=== PATIENT | female | born 1995 | race Caucasian/White ===

== ENCOUNTER 2017-04-15 01:22 | Inpatient (IN) ==
--- NOTE | 2017-04-14 20:43 | OB/GYN History & Physical ---
Date of Encounter: 04/14/17 Time of Encounter: 20:34 History of Present Illness HPI: Ms. Mcgrath is a 21 year old female presents to [facility] with complaints of vaginal bleeding and leaking of fluid. Pt evaluated earlier this evening at [facility]. Pt states she went to [facility] for assessment of abdominal and menstrual type cramping, back pain and leaking of fluid. Past Med Surg Social Fam HX - Past Medical History Medical history: seizures Psychiatric history: ADHD - Social History Smoking Status: Never smoker Smokeless Tobacco Status: No Alcohol use: none Drug use: none Medications and Allergies Divalproex Sodium [Divalproex Sodium ER] 500 mg PO DAILY 12/30/14 [History] Folic Acid 1 mg PO DAILY 12/30/14 [History] Methylphenidate HCl [Methylphenidate ER] 54 mg PO DAILY 12/30/14 [History] Omeprazole [Prilosec] 20 mg PO DAILY 12/30/14 [History] Quetiapine Fumarate [SEROquel] 100 mg PO HS 12/30/14 [History] Quetiapine Fumarate [Seroquel] 50 mg PO DAILY 12/30/14 [History] lamoTRIgine [Lamotrigine] 25 mg PO DAILY 12/30/14 [History] Cephalexin [Keflex] 500 mg PO BID 7 Days capsule 01/17/17 [Rx] Acetaminophen [Tylenol] 500 mg PO Q6HR PRN #20 tablet 03/04/17 [Rx] 3 Allergy/AdvReac Type Severity Reaction Status Date / Time Amoxicillin Allergy Nausea Verified 01/17/17 12:40 Results All other labs normal.
--- NOTE | 2017-04-14 21:03 | OB/GYN History & Physical ---
Date of Encounter: 04/14/17 Time of Encounter: 20:50 Assessment and Plan (1) 35 weeks gestation of Current visit: Yes Status: Acute (2) labor in third trimester Current visit: Yes Status: Acute Pt 4cm on arrival to triage. Obtain UA C&S 1L LR bolus then 125/hr. Observe for cervical change Dr. Silva aware of evaluation Nubain for contraction pain Qualifiers: labor delivery status: without delivery Qualified Code(s): O60.03 - labor without delivery, third trimester History of Present Illness HPI: Ms. Mcgrath is a 21 year old female 35+0 by patient given EDC of May 19. Presents to triage with complaints of abdominal pain, vaginal bleeding and leaking of fluid. Pt evaluated earlier this evening at [facility]. Pt states she went to [facility] for assessment of abdominal and menstrual type cramping, back pain and leaking of fluid.While at [facility], pt made cervical change from 1 -4 cm. [facility] attempted to transfer patient to [facility] and patient refused. Pt now presents to [facility] for treatment and evaluation. Reports good movement, states is being followed high risk MD for a possible history of seizures, Pt states was told the baby is growing well. 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 Past Med Surg Social Fam HX - Past Medical History Medical history: seizures Psychiatric history: ADHD - Past Surgical History Surgical History: other - Social History Smoking Status: Never smoker Smokeless Tobacco Status: No Alcohol use: none Drug use: none - Family History Mother History Unknown: Yes Obstetrical History - Pregnancies : 2 Para: 0 Term: 0 : 0 Ab's: 1 Livin Medications and Allergies Divalproex Sodium [Divalproex Sodium ER] 500 mg PO DAILY 12/30/14 [History] lamoTRIgine [Lamotrigine] 25 mg PO DAILY 12/30/14 [History] Acetaminophen [Tylenol] 500 mg PO Q6HR PRN #20 tablet 03/04/17 [Rx] 3 Allergy/AdvReac Type Severity Reaction Status Date / Time Amoxicillin Allergy Nausea Verified 04/14/17 20:51 Exam - Constitutional Constitutional: well developed, well nourished, no acute distress, average body habitus - Neck Neck exam: full ROM - Lungs Respiratory exam: CTAB - Cardiovascular Cardiovascular exam: RRR - Abdomen Abdomen: Present: bowel sounds normal, gravid, non tender - Extremities Extremities exam: normal capillary refill, normal inspection Deep Tendon Reflex Grade: 2+ Normal - Vagina Vagina: Present: normal moisture - Cervix Dilation: 4 Effacement: 75 Station: -2 - Uterus Uterus exam: Present: normal size, normal contour Results Result Diagrams: 04/14/17 21:05 All other labs normal. - VTE Reasons for not Prescribing Prophylaxis: Treatment not Indicated - Low risk for VTE
[2017-04-14 21:26] LABS: Basophils % 0.4 %; Eosinophils % 0.4 %; Hematocrit 32.5 % (35.3-44.9); Immature Granulocytes % 1.3 % (0-4); Lymphocytes # 1.8 K/mcL (0.6-4.6); Lymphocytes % 18.4 %; Mean Corpuscular HGB Conc 33.8 g/dL (31.6-35.5); Mean Corpuscular Hemoglobin 30.5 pg (28.0-33.3); Mean Platelet Volume 11.2 fL (9.4-12.4); Monocytes # 0.8 K/mcL (0.0-1.3); Monocytes % 7.7 %; Neutrophils # 7.2 K/mcL (1.6-8.9); Platelet Count 133 K/mcL (140-400); Red Blood Count 3.61 M/mcL (3.82-4.97); Red Cell Distribution Width 14.5 % (11.5-14.5); Segmented Neutrophils % 71.8 %
[2017-04-14 21:28] LABS: Bilirubin,Urine Negative (Negative); Blood,Urine Small (Negative); Clarity,Urine Cloudy (Clear); Color,Urine Yellow (Yellow); Glucose,Urine (UA) Normal (Normal); Ketones,Urine 15 mg/dL (Negative); Leukocyte Esterase,Urine Large (Negative); Nitrite,Urine Negative (Negative); Protein,Urine Negative (Neg-Trace); Specific Gravity,Urine 1.013 (1.010-1.025); Urobilinogen,Urine Normal (Normal)
[2017-04-14 21:30] LABS: Bacteria,Urine Few per hpf (None-Few); Hyaline Casts,Urine None Seen per lpf (None-Few); RBC,Urine 0-3 per hpf (0-3); Squamous Epithelial Cell,Urine Many per lpf (None-Few); WBC,Urine 30-50 per hpf (0-3)
[2017-04-14 21:34] LABS: Amphetamine Screen,Urine Negative ng/mL (Cutoff=1000); Barbiturate Screen,Urine Negative ng/mL (Cutoff=200); Benzodiazepines Screen,Urine Negative ng/mL (Cutoff=200); Cannabinoid Screen,Urine Negative ng/mL (Cutoff = 50); Cocaine Screen,Urine Negative ng/mL (Cutoff= 300); Opiate Screen,Urine Negative ng/mL (Cutoff=300); Phencyclidine Screen,Urine Negative ng/mL (Cutoff=25)
--- NOTE | 2017-04-15 01:07 | OB/GYN Progress Note ---
Date of Encounter: 04/15/17 Time of Encounter: 01:05 - Assessment and Plan (1) 35 weeks gestation of Current Visit: Yes Status: Acute (2) labor in third trimester Current Visit: Yes Status: Acute Obtained records which show EDC of 06/02/17, pt is 33+[address] Silva updated about EDC and patient with cervical change from 3-4 cm to a full 4 cm. Pt continues to have contractions, difficult to monitor due to patient frequent repositioning. Dr. Silva stated no need to transfer to [facility] at this time. Give Betamethasone, start magnesium 4gm bolus followed by 2gm/hr. and observe. Nursery made aware of patient status. Qualifiers: labor delivery status: without delivery Qualified Code(s): O60.03 - labor without delivery, third trimester Objective - Vital Signs Vital Signs: Intake and Output 04/14/17 04/14/17 04/15/17 15:59 23:59 07:59 Other: Weight 72 kg - Exam FHR: auscultation normal Cervical dilation: 4/75/-2 - Labs Labs: Abnormal lab results RBC 3.61 M/mcL (3.82-4.97) L 04/14/17 21:05 Hgb 11.0 g/dL (11.5-15.4) L 04/14/17 21:05 Hct 32.5 % (35.3-44.9) L 04/14/17 21:05 Plt Count 133 K/mcL (140-400) L 04/14/17 21:05 Urine Clarity Cloudy (Clear) A 04/14/17 21:05 Urine Ketones 15 mg/dL (Negative) H 04/14/17 21:05 Urine Blood Small (Negative) H 04/14/17 21:05 Ur Leukocyte Esterase Large (Negative) H 04/14/17 21:05 Urine Microscopic WBC 30-50 per hpf (0-3) H 04/14/17 21:05 Ur Squamous Epith Cells Many per lpf (None-Few) H 04/14/17 21:05 Ur Culture Indicated? YES (NO) A 04/14/17 21:05
[2017-04-15] MEDS: Betamethasone Acet/SodPhos 6 MG/ML MDV IM SCH (01:11)
[~2017-04-15 01:22] MED LIST: *HR* Nalbuphine 20 MG/ML AMPUL IVP STA; Famotidine 20 MG/2 ML VIAL IVP PRN; Magnesium Sulfate 20 gm/500mL 20 GM/500 ML IV.SOLN IVC SCH; Naloxone 0.4 MG/ML INJ IVP PRN; Ondansetron 4 MG/2 ML VIAL IVP PRN; Penicillin G Potassium 5,000,000 UNIT in D5% in Water (Mini-Bag+) 100 ML IVPB ONE; Ringers Solution, Lactated 1,000 ML IVC ONE
[2017-04-15] MEDS: Penicillin G Potassium 2,500,000 UNIT in D5% in Water 100 ML IVPB SCH ×4 (01:48→20:45)
[2017-04-15] MEDS ORDERED: Calcium Gluconate 1,000 MG/10 ML VIAL IVPB ONE (02:03)
--- NOTE | 2017-04-15 03:44 | Event Note ---
Date of Encounter: 04/15/17 Time of Encounter: 03:15 Dr. Silva instructed RN at 0257 to discontinue magnesium and recheck patient. Cervical exam unchanged remains /-
--- NOTE | 2017-04-15 06:58 | OB/GYN Progress Note ---
Date of Encounter: 04/15/17 Time of Encounter: 06:56 - Assessment and Plan (1) labor Current Visit: Yes Status: Acute transfer to antepartum to receive 2nd dose of BMZ, NST Qshift Qualifiers: Qualified Code(s): O60.00 - labor without delivery, unspecified trimester; O60.0 - labor without delivery Subjective - Subjective Interval history: patient sleeping in the room Objective - Vital Signs Vital Signs: Intake and Output 04/14/17 04/14/17 04/15/17 15:59 23:59 07:59 Intake Total 100 / 100 Balance 100 / 100 Intake: IV Fluids 100 / 100 Pfizerpen 2,500,000 UNIT In 100 / 100 Dextrose 5% 100 ML @ 200 mls/hr IVPB Q4H [facility] Rx#:[id number] Other: Weight 72 kg - Exam FHR: category 1 - Labs Labs: Abnormal lab results RBC 3.61 M/mcL (3.82-4.97) L 04/14/17 21:05 Hgb 11.0 g/dL (11.5-15.4) L 04/14/17 21:05 Hct 32.5 % (35.3-44.9) L 04/14/17 21:05 Plt Count 133 K/mcL (140-400) L 04/14/17 21:05 Urine Clarity Cloudy (Clear) A 04/14/17 21:05 Urine Ketones 15 mg/dL (Negative) H 04/14/17 21:05 Urine Blood Small (Negative) H 04/14/17 21:05 Ur Leukocyte Esterase Large (Negative) H 04/14/17 21:05 Urine Microscopic WBC 30-50 per hpf (0-3) H 04/14/17 21:05 Ur Squamous Epith Cells Many per lpf (None-Few) H 04/14/17 21:05 Ur Culture Indicated? YES (NO) A 04/14/17 21:05
[2017-04-15] MEDS ORDERED: lamoTRIgine 100 MG TABLET PO SCH ×2 (09:00→23:30)
--- NOTE | 2017-04-15 11:13 | OB/GYN Progress Note ---
Date of Encounter: 04/15/17 Time of Encounter: 11:10 - Assessment and Plan (1) 33 weeks gestation of Current Visit: Yes Status: Acute (2) labor in third trimester Current Visit: Yes Status: Acute Contractions had slowed overnight but have resumed this am. Pt reports significant pain. Will start procardia tocolysis for the remainder of steroid time. Will repeat Celestone early if pt continues to progress. POC discussed with Dr. Cobb who states he prefers Procardia 30XL. Qualifiers: labor delivery status: without delivery Qualified Code(s): O60.03 - labor without delivery, third trimester Subjective - Subjective Principal diagnosis: labor Interval history: This am pt is complaining of increased pain again to 03/09. She reports the pain is constant with intermittent exacerbation and in in her lower abdomen and back. She denies other complaints. No LOF. She does admit some bloody discharge for the last week. Good FM. Antepartum ROS: vaginal bleeding (spotting), movement normal, contractions , no loss of fluid Objective - Vital Signs Vital Signs: Intake and Output 04/14/17 04/15/17 04/15/17 23:59 07:59 15:59 Intake Total 100 / 100 Balance 100 / 100 Intake: IV Fluids 100 / 100 Pfizerpen 2,500,000 UNIT In 100 / 100 Dextrose 5% 100 ML @ 200 mls/hr IVPB Q4H [facility] Rx#:[id number] Other: Weight 72 kg - Exam FHR: category 1 Auscultation: bilateral: normal (tachypnea noted at this time) Abdomen: Present: soft, gravid, tenderness (TTP in suprapubic area) Cervical dilation: 4-5 Cervix effacement: 80 station: -3 bolottable - Labs Labs: Abnormal lab results RBC 3.61 M/mcL (3.82-4.97) L 04/14/17 21:05 Hgb 11.0 g/dL (11.5-15.4) L 04/14/17 21:05 Hct 32.5 % (35.3-44.9) L 04/14/17 21:05 Plt Count 133 K/mcL (140-400) L 04/14/17 21:05 Urine Clarity Cloudy (Clear) A 04/14/17 21:05 Urine Ketones 15 mg/dL (Negative) H 04/14/17 21:05 Urine Blood Small (Negative) H 04/14/17 21:05 Ur Leukocyte Esterase Large (Negative) H 04/14/17 21:05 Urine Microscopic WBC 30-50 per hpf (0-3) H 04/14/17 21:05 Ur Squamous Epith Cells Many per lpf (None-Few) H 04/14/17 21:05 Ur Culture Indicated? YES (NO) A 04/14/17 21:05
[2017-04-15] MEDS ORDERED: NIFEdipine XL (24 HR) 30 MG TAB.ER.24 PO SCH (11:15)
[2017-04-15] MEDS ORDERED: CeFAZolin Premix DUPLEX 2,000 MG/50 ML BAG IVPB ONE (11:21)
[2017-04-15] MEDS ORDERED: Prenatal Vit/FA 1 EACH TABLET PO SCH (14:45)
[2017-04-15] MEDS ORDERED: Acetaminophen 325 MG TABLET PO ONE (16:04)
[2017-04-15] MEDS: Ringers Solution, Lactated 1,000 ML IVC SCH (16:33)
[2017-04-15] MEDS: metroNIDAZOLE 500 MG TABLET PO SCH ×2 (16:34→23:43)
[2017-04-15] MEDS ORDERED: *HR* Nalbuphine 20 MG/ML AMPUL IVP ONE (23:05)
[2017-04-15] MEDS ORDERED: lamoTRIgine 25 MG TABLET PO SCH (23:30)
[2017-04-16] MEDS: Betamethasone Acet/SodPhos 6 MG/ML MDV IM SCH (01:17)
[2017-04-16] MEDS: Penicillin G Potassium 2,500,000 UNIT in D5% in Water 100 ML IVPB SCH ×2 (01:28→07:48)
[2017-04-16] MEDS: Ringers Solution, Lactated 1,000 ML IVC SCH (01:29)
--- NOTE | 2017-04-16 08:07 | Discharge Summary ---
Date of Encounter: 04/16/17 Time of Encounter: 08:08 - Discharge Diagnosis (1) 33 weeks gestation of Priority: Secondary Status: Acute (2) labor in third trimester Priority: Primary Status: Acute Comments: No cervical change for over 24 hours. Contractions less frequent with procardia. SHe has received 2 doses of celestone. Discharge home with procardia and labor precautions. POC per Dr. Leo. Qualifiers: labor delivery status: without delivery Qualified Code(s): O60.03 - labor without delivery, third trimester (3) Bacterial vaginosis Priority: Secondary Status: Acute Comments: BV diagnosed by outside hospital but not treated prior to pt leaving [facility] according to the records. Flagyl started while pt hospitalized here. Discharge with rx for flagyl. (4) Acute cystitis during in third trimester Priority: Secondary Status: Acute Comments: Pt has been treated with IV antibiotics both here and at the outside hospital prior to admission here. - Discharge Medications Prescriptions: NIFEdipine [Procardia] 10 mg PO Q6HR PRN #10 capsule PRN Reason: uterine contractions metroNIDAZOLE [Flagyl] 500 mg PO BID #12 tablet Home Medications: Lamictal 125 mg PO BID 04/15/17 [History] Tablet 04/15/17 [History] NIFEdipine [Procardia] 10 mg PO Q6HR PRN #10 capsule 04/16/17 [Rx] metroNIDAZOLE [Flagyl] 500 mg PO BID #12 tablet 04/16/17 [Rx] Allergies/Adverse Reactions: 3 Allergy/AdvReac Type Severity Reaction Status Date / Time Amoxicillin Allergy Nausea Verified 04/14/17 20:51 Data Procedures and tests throughout hospitalization: Laboratory Tests 04/14/17 04/14/17 04/14/17 21:05 21:05 21:05 WBC 10.0 RBC 3.61 L Hgb 11.0 L Hct 32.5 L MCV 90.0 MCH 30.5 MCHC 33.8 RDW 14.5 Plt Count 133 L MPV 11.2 Immature Gran % 1.3 Seg Neutrophils % 71.8 Lymphocytes % 18.4 Monocytes % 7.7 Eosinophils % 0.4 Basophils % 0.4 Neutrophils # 7.2 Lymphocytes # 1.8 Monocytes # 0.8 Eosinophils # 0.0 Basophils # 0.0 Urine Color Yellow Urine Clarity Cloudy A Urine pH 7.0 Ur Specific [place] 1.013 Urine Protein Negative Urine Glucose (UA) Normal Urine Ketones 15 H Urine Blood Small H Urine Nitrite Negative Urine Bilirubin Negative Urine Urobilinogen Normal Ur Leukocyte Esterase Large H Urine Microscopic RBC 0-3 Urine Microscopic WBC 30-50 H Ur Squamous Epith Cells Many H Urine Bacteria Few Hyaline Casts None Seen Ur Culture Indicated? YES A Urine Opiates Screen Negative Ur Barbiturates Screen Negative Ur Phencyclidine Scrn Negative Ur Amphetamines Screen Negative U Benzodiazepines Scrn Negative Urine Cocaine Screen Negative U Marijuana (THC) Screen Negative HIV Ag/Ab Combo Qual 04/15/17 02:28 WBC RBC Hgb Hct MCV MCH MCHC RDW Plt Count MPV Immature Gran % Seg Neutrophils % Lymphocytes % Monocytes % Eosinophils % Basophils % Neutrophils # Lymphocytes # Monocytes # Eosinophils # Basophils # Urine Color Urine Clarity Urine pH Ur Specific [place] Urine Protein Urine Glucose (UA) Urine Ketones Urine Blood Urine Nitrite Urine Bilirubin Urine Urobilinogen Ur Leukocyte Esterase Urine Microscopic RBC Urine Microscopic WBC Ur Squamous Epith Cells Urine Bacteria Hyaline Casts Ur Culture Indicated? Urine Opiates Screen Ur Barbiturates Screen Ur Phencyclidine Scrn Ur Amphetamines Screen U Benzodiazepines Scrn Urine Cocaine Screen U Marijuana (THC) Screen HIV Ag/Ab Combo Qual Nonreactive Labs on day of discharge: Preliminary micro results at discharge 04/14/17 21:05 Urine Culture - Preliminary Urine,Clean Catch Yeast Species Date of admission: 04/15/17 01:22 Primary care physician: Gloria Gutierrez MD Discharging clinician: Patricia Santiago Anticipated date of discharge: 04/16/17 - Patient Status Disposition: Home, Self-Care Condition: Good Functional capacity at discharge: independent ambulation Overall status at discharge: patient is progressing back to baseline - Discharge Instructions Follow Up With: Gloria Gutierrez MD [Primary Care Provider] - Jackie Pond DO [Non-Partnered Physician] - - Diet and Activity Activity: other (rest as much as possible) Diet: regular diet 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 She was treated for a UTI and was started on Flagyl for BV. She received magnesium sulfate 4 gram loading dose. Tocolysis was achieved through steroid time with procardia. Pt discharged home with procardia PRN per Dr. Leo's recommendation. Time Attestation: Total time spent providing and/or coordinating discharge services: Time Spent: Less than 30 minutes Exam - Constitutional General appearance IM: A&O X 3, no acute distress - Respiratory Respiratory exam: Present: CTAB - Cardiovascular Cardiovascular exam IM: Present: RRR - GI/Abdominal GI/Abdominal exam IM: soft, tenderness (suprapubic tenderness, improving) - Rectal Rectal exam: deferred - External exam: normal external exam - Extremities Exam Extremities exam IM: Present: normal inspection - Neurological Exam Neurological exam: normal gait, oriented X3 - VTE Reasons for not Prescribing Prophylaxis: Treatment not Indicated - Low risk for VTE
[2017-04-16 09:25] LABS: Varicella Zoster IgG Antibody Negative
[2017-04-16 09:27] LABS: Rubella IgG Antibody EQUIVOCAL (POSITIVE)
== END 2017-04-16 08:35 | disposition home or self-care (01) | DRG 563 ==
LOC: 1NENULAB
PROVIDERS: ADMIT Advanced Practice Midwife; ATTEND Advanced Practice Midwife

== ENCOUNTER → 2017-04-16 17:25 | Observation (INO) ==
--- NOTE | 2017-04-16 15:49 | OB/GYN Progress Note ---
Date of Encounter: 04/16/17 Time of Encounter: 15:38 - Assessment and Plan (1) 33 weeks gestation of Current Visit: No Status: Acute admitted for observation (2) labor in third trimester Current Visit: No Status: Acute Will send RX for procardia to inpatient pharmacy to be filled. Qualifiers: labor delivery status: without delivery Qualified Code(s): O60.03 - labor without delivery, third trimester (3) Bacterial vaginosis Current Visit: No Status: Acute RX for Flagyl given this morning Subjective - Subjective Principal diagnosis: contractions Interval history: Patient is 21 yo at 33w3d with EDC of 06/02/2017 presents to labor and delivery with complaints of contractions that are getting more intense. Patient was discharged from labor and delivery this morning around 0730. Patient was inpatient for over 24 hours for steroids. Patient did not make cervical change and was discharged. Patient receives care at [facility]. Patient was given a RX for procardia however, patient has not filled prescription. Patient reports [facility] does not have procardia in stock. Antepartum ROS: vaginal bleeding (bloody show), movement normal, contractions, no loss of fluid Objective - Exam FHR: auscultation normal, category 1 FHR comments: FHR 125 bpm moderate variability +15x15 accels no decels noted. Cat. 1 tracing. no contractions noted at this time. Auscultation: bilateral: normal Abdomen: Present: normal appearance, soft, gravid Uterus: Present: normal Cervical dilation: 4 Cervix effacement: 80 station: -3
--- NOTE | 2017-04-16 17:00 | Discharge Summary ---
Date of Encounter: 04/16/17 Time of Encounter: 17:00 - Discharge Diagnosis (1) 33 weeks gestation of Priority: Primary Status: Acute (2) labor in third trimester Priority: Secondary Status: Acute Comments: No cervical change Qualifiers: labor delivery status: without delivery Qualified Code(s): O60.03 - labor without delivery, third trimester (3) Bacterial vaginosis Priority: Secondary Status: Acute (4) NST (non-stress test) reactive on surveillance Priority: Secondary Status: Acute Comments: 135 bpm moderate variability +15x15 accels no decels noted. - Discharge Medications Prescriptions: NIFEdipine [Procardia] 10 mg PO Q6HR PRN 7 Days #28 capsule PRN Reason: Premature Labor Home Medications: Lamictal 125 mg PO BID 04/15/17 [History] Tablet 04/15/17 [History] NIFEdipine [Procardia] 10 mg PO Q6HR PRN #10 capsule 04/16/17 [Rx] NIFEdipine [Procardia] 10 mg PO Q6HR PRN 7 Days #28 capsule 04/16/17 [Rx] metroNIDAZOLE [Flagyl] 500 mg PO BID #12 tablet 04/16/17 [Rx] Allergies/Adverse Reactions: 3 Allergy/AdvReac Type Severity Reaction Status Date / Time Amoxicillin Allergy Nausea Verified 04/14/17 20:51 Date of admission: 04/16/17 15:07 Primary care physician: PCP NONE Discharging clinician: Lawanda Gerard Anticipated date of discharge: 04/16/17 - Patient Status Disposition: Home, Self-Care Condition: Good Functional capacity at discharge: independent ambulation - Discharge Instructions Follow Up With: NONE,PCP [Primary Care Provider] - - Diet and Activity Activity: increase activity as tolerated Diet: regular diet 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 No contractions noted. CAt. 1 tracing. - VTE Reasons for not Prescribing Prophylaxis: Treatment not Indicated - Low risk for VTE
== END | disposition home or self-care (01) ==
LOC: 1NENULAB
PROVIDERS: ADMIT Obstetrics & Gynecology; ATTEND Obstetrics & Gynecology

== ENCOUNTER → 2018-08-10 01:10 | Observation (INO) ==
[2018-08-10 00:13] LABS: Bilirubin,Urine Negative (Negative); Blood,Urine Negative (Negative); Clarity,Urine Clear (Clear); Color,Urine Yellow (Yellow); Glucose,Urine (UA) Normal (Normal); Ketones,Urine Negative (Negative); Leukocyte Esterase,Urine Negative (Negative); Nitrite,Urine Negative (Negative); PH,Urine 7.5 pH Units (5.0-8.0); Protein,Urine Negative (Neg-Trace); Specific Gravity,Urine 1.007 (1.010-1.025); Urobilinogen,Urine Normal (Normal)
--- NOTE | 2018-08-10 00:22 | Discharge Summary ---
Date of Encounter: 08/10/18 Time of Encounter: 00:47 - Discharge Diagnosis (1) 23 weeks gestation of Priority: Primary Status: Acute Comments: Admitted to observation for possible PPROM (2) Vaginal discharge during in second trimester Priority: Secondary Status: Acute Comments: SSE, Vaginosis panel collected and pending. - Discharge Medications Prescriptions: No Action Lexapro 15 mg PO DAILY Vit #108/Iron/FA [ One Tablet] 1 each PO QDPC #30 tablet Lamotrigine 125 mg PO DAILY Home Medications: Lexapro 15 mg PO DAILY 11/10/17 [History] Vit #108/Iron/FA [ One Tablet] 1 each PO QDPC #30 tablet [Rx] Lamotrigine 125 mg PO DAILY 08/09/18 [History] Allergies/Adverse Reactions: Allergy/AdvReac Type Severity Reaction Status Date / Time Amoxicillin Allergy Nausea Verified 06/28/18 12:31 Penicillins Allergy Vomiting Verified 08/09/18 23:49 Data Procedures and tests throughout hospitalization: Laboratory Tests 08/10/18 08/10/18 00:02 00:02 Urine Color Yellow Urine Clarity Clear Urine pH 7.5 Ur Specific [place] 1.007 L Urine Protein Negative Urine Glucose (UA) Normal Urine Ketones Negative Urine Blood Negative Urine Nitrite Negative Urine Bilirubin Negative Urine Urobilinogen Normal Ur Leukocyte Esterase Negative Ur Culture Indicated? NO Ur Drug Screen Interp See Below Labs on day of discharge: Labs from last 24 hours 08/10/18 08/10/18 00:02 00:02 Urine Color Yellow Urine Clarity Clear Urine pH 7.5 Ur Specific [place] 1.007 L Urine Protein Negative Urine Glucose (UA) Normal Urine Ketones Negative Urine Blood Negative Urine Nitrite Negative Urine Bilirubin Negative Urine Urobilinogen Normal Ur Leukocyte Esterase Negative Ur Culture Indicated? 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 She was asleep and woke up with wet clothes and has continued to have fluid leakage since that time. She arrives with complaint of abdominal pain as well. She denies any placenta previa or other complications during this . SSE reveals normal vaginal mucous and moderate amount of creamy white discharge. Cervix visualized and appears closed. [place] and abdominal palpation reveal no contractions. Vaginosis panel is pending at this time. Suspected possible UTI due to abdominal pain but urine cath sample is completely unremarkable. IV fluid bolus given and patient states pain is better since. Will treat if vaginosis panel returns positive. Time Attestation: Total time spent providing and/or coordinating discharge services: Time Spent: Less than 30 minutes Exam - Constitutional General appearance IM: mild distress, A&O X 3, pleasant, answers questions appropriately - Respiratory Respiratory exam: Present: CTAB - Cardiovascular Cardiovascular exam IM: Present: RRR, +S1, +S2 - GI/Abdominal GI/Abdominal exam IM: normal bowel sounds, soft - Rectal Rectal exam: deferred - External exam: normal external exam - Extremities Exam Extremities exam IM: Present: full ROM, normal capillary refill, normal inspecti on - Neurological Exam Neurological exam: alert, normal gait, oriented X3 - VTE Reasons for not Prescribing Prophylaxis: Treatment not Indicated - Low risk for VTE
[2018-08-10 00:23] LABS: Amphetamine Screen,Urine Negative ng/mL (Cutoff=1000); Barbiturate Screen,Urine Negative ng/mL (Cutoff=200); Benzodiazepines Screen,Urine Negative ng/mL (Cutoff=200); Cannabinoid Screen,Urine Negative ng/mL (Cutoff = 50); Cocaine Screen,Urine Negative ng/mL (Cutoff= 300); Opiate Screen,Urine Negative ng/mL (Cutoff=300); Phencyclidine Screen,Urine Negative ng/mL (Cutoff=25)
[2018-08-10 00:50] LABS: Candida DNA Not Detected (Not Detect); Gardnerella DNA Not Detected (Not Detect); Trichomonas DNA Not Detected (Not Detect)
[~2018-08-10 01:10] MED LIST changes: -*HR* Nalbuphine 20 MG/ML AMPUL IVP STA; -Famotidine 20 MG/2 ML VIAL IVP PRN; -Magnesium Sulfate 20 gm/500mL 20 GM/500 ML IV.SOLN IVC SCH; -Naloxone 0.4 MG/ML INJ IVP PRN; -Ondansetron 4 MG/2 ML VIAL IVP PRN; -Penicillin G Potassium 5,000,000 UNIT in D5% in Water (Mini-Bag+) 100 ML IVPB ONE; +Ringers Solution, Lactated 1,000 ML ONE
== END | disposition home or self-care (01) ==
LOC: 1NENULAB
PROVIDERS: ADMIT Registered Nurse; ATTEND Registered Nurse

== ENCOUNTER → 2018-09-18 23:23 | Observation (INO) ==
[2018-09-18 21:25] LABS: Basophils % 0.3 %; Eosinophils # 0.1 K/mcL (0.0-0.6); Eosinophils % 1.1 %; Hematocrit 28.8 % (35.3-44.9); Hemoglobin 9.2 g/dL (11.5-15.4); Immature Granulocytes % 1.4 % (0-4); Lymphocytes # 1.8 K/mcL (0.6-4.6); Lymphocytes % 20.7 %; Mean Corpuscular HGB Conc 31.9 g/dL (31.6-35.5); Mean Corpuscular Hemoglobin 26.5 pg (28.0-33.3); Mean Platelet Volume 10.3 fL (9.4-12.4); Monocytes # 0.6 K/mcL (0.0-1.3); Monocytes % 6.6 %; Neutrophils # 6.2 K/mcL (1.6-8.9); Platelet Count 176 K/mcL (140-400); Red Blood Count 3.47 M/mcL (3.82-4.97); Red Cell Distribution Width 15.4 % (11.5-14.5); Segmented Neutrophils % 69.9 %
--- NOTE | 2018-09-18 21:25 | OB/GYN Progress Note ---
Date of Encounter: 09/18/18 Time of Encounter: 21:12 - Assessment and Plan (1) 29 weeks gestation of Current Visit: Yes Status: Acute Urine pending GC/CL pending Vaginosis pending CBC pending NST reactive Anticipate discharge home with PTL precautions and antibiotics as needed for positive cultures/urines Follow up in office as scheduled and PRN POC per consult with Dr Rossi (2) NST (non-stress test) reactive on surveillance Current Visit: Yes Status: Acute Subjective - Subjective Principal diagnosis: Vaginal discharge Interval history: Ms Williamson is at 29 weeks and 3 days that presents to triage via squad with c/o vaginal gush in [place] this evening and cramping. She also complains of dysuria and urinary urgency/frequency with suprapubic pain. She denies flu- like symptoms and fevers. She states positive movement. She denies headaches, vision changes, epigastric pain, and contractions. She states she did get treated for Chlamydia but her partner did not. She states she has not been sexually active with him since her treatment and she has had a negative DEMARCO since. She is seen by Dr Gates for her care. She does have a significant social history and per her first is working with a psychotherapist social worker - was living in a correction with her child at suppressed menses visit. Patient did not state her living condition today and did not have her child with her. Antepartum ROS: new complaints (cramping), movement normal, no loss of fluid (vaginal discharge), no contractions Objective - Exam FHR comments: Baseline 150 15x15 accels, no decels no contractions per toco or palpation Abdomen: Present: normal appearance, soft, gravid, tenderness (right CVA tenderness and suprapubic tenderness) Uterus: Present: normal. Absent: firm, tenderness Cervical dilation: closed Cervix effacement: thick station: high Comments: SSE - thin green/yellow discharge, no pooling, cervix appears closed Nitrazine negative
[2018-09-18 21:57] LABS: Bilirubin,Urine Negative (Negative); Blood,Urine Negative (Negative); Clarity,Urine Cloudy (Clear); Color,Urine Yellow (Yellow); Glucose,Urine (UA) Normal (Normal); Ketones,Urine Negative (Negative); Leukocyte Esterase,Urine Small (Negative); Nitrite,Urine Negative (Negative); PH,Urine 7.5 pH Units (5.0-8.0); Protein,Urine Trace mg/dL (Neg-Trace); Specific Gravity,Urine 1.017 (1.010-1.025); Urobilinogen,Urine Normal (Normal)
[2018-09-18 21:59] LABS: Bacteria,Urine Few per hpf (None-Few); Hyaline Casts,Urine Few per lpf (None-Few); RBC,Urine 0-3 per hpf (0-3); Squamous Epithelial Cell,Urine Many per lpf (None-Few)
[2018-09-18 22:06] LABS: Amphetamine Screen,Urine Negative ng/mL (Cutoff=1000); Barbiturate Screen,Urine Negative ng/mL (Cutoff=200); Benzodiazepines Screen,Urine Negative ng/mL (Cutoff=200); Cannabinoid Screen,Urine Negative ng/mL (Cutoff = 50); Cocaine Screen,Urine Negative ng/mL (Cutoff= 300); Opiate Screen,Urine Negative ng/mL (Cutoff=300); Phencyclidine Screen,Urine Negative ng/mL (Cutoff=25)
[2018-09-18 23:04] LABS: Candida DNA Not Detected (Not Detect); Gardnerella DNA Not Detected (Not Detect); Trichomonas DNA Not Detected (Not Detect)
[~2018-09-18 23:23] MED LIST changes: +CeFAZolin Premix DUPLEX 2,000 MG/50 ML BAG IVPB ONE; +CefTRIAXone 1,000 MG VIAL IM ONE; +Ondansetron ODT 4 MG TAB.RAPDIS SL ONE; -Ringers Solution, Lactated 1,000 ML IVC ONE; -Ringers Solution, Lactated 1,000 ML ONE; +ceFAZolin 2,000 MG in D5% in Water 100 ML IVPB ONE
== END | disposition home or self-care (01) ==
LOC: 1NENULAB
PROVIDERS: ADMIT Advanced Practice Midwife; ATTEND Advanced Practice Midwife

== ENCOUNTER 2018-10-17 14:07 | Observation (INO) ==
[2018-10-17 14:57] LABS: Bilirubin,Urine Negative (Negative); Blood,Urine Negative (Negative); Clarity,Urine Turbid (Clear); Color,Urine Yellow (Yellow); Glucose,Urine (UA) Normal (Normal); Ketones,Urine Negative (Negative); Leukocyte Esterase,Urine Large (Negative); Nitrite,Urine Negative (Negative); PH,Urine 8.5 pH Units (5.0-8.0); Protein,Urine 100 mg/dL (Neg-Trace); Specific Gravity,Urine 1.025 (1.010-1.025); Urobilinogen,Urine Normal (Normal)
[2018-10-17 15:00] LABS: RBC,Urine 0-3 per hpf (0-3); Squamous Epithelial Cell,Urine Many per lpf (None-Few); WBC,Urine 0-3 per hpf (0-3)
[2018-10-17 15:01] LABS: Bacteria,Urine Many per hpf (None-Few)
--- NOTE | 2018-10-17 15:02 | Discharge Summary ---
Date of Encounter: 10/17/18 Time of Encounter: 15:03 - Discharge Diagnosis (1) Lightheaded Status: Acute (2) NST (non-stress test) reactive on surveillance Status: Acute (3) 29 weeks gestation of Status: Acute - Discharge Medications Prescriptions: No Action Lexapro 15 mg PO DAILY Vit #108/Iron/FA [ One Tablet] 1 each PO QDPC #30 tablet Lamotrigine 125 mg PO DAILY Ondansetron ODT [Zofran ODT] 4 mg SL Q6HR PRN #15 tab.rapdis PRN Reason: Nausea And Vomiting Home Medications: Lexapro 15 mg PO DAILY 11/10/17 [History] Vit #108/Iron/FA [ One Tablet] 1 each PO QDPC #30 tablet 05/08/18 [Rx] Lamotrigine 125 mg PO DAILY 08/09/18 [History] Ondansetron ODT [Zofran ODT] 4 mg SL Q6HR PRN #15 tab.rapdis 09/18/18 [Rx] Allergies/Adverse Reactions: Allergy/AdvReac Type Severity Reaction Status Date / Time Amoxicillin Allergy Nausea Verified 09/18/18 21:05 Penicillins Allergy Vomiting Verified 09/18/18 21:05 Data Procedures and tests throughout hospitalization: Laboratory Tests 10/17/18 14:20 Urine Color Yellow Urine Clarity Turbid A Urine pH 8.5 H Ur Specific [place] 1.025 Urine Protein 100 H Urine Glucose (UA) Normal Urine Ketones Negative Urine Blood Negative Urine Nitrite Negative Urine Bilirubin Negative Urine Urobilinogen Normal Ur Leukocyte Esterase Large H Labs on day of discharge: Labs from last 24 hours 10/17/18 14:20 Urine Color Yellow Urine Clarity Turbid A Urine pH 8.5 H Ur Specific [place] 1.025 Urine Protein 100 H Urine Glucose (UA) Normal Urine Ketones Negative Urine Blood Negative Urine Nitrite Negative Urine Bilirubin Negative Urine Urobilinogen Normal Ur Leukocyte Esterase Large H Date of admission: 10/17/18 13:58 Primary care physician: PCP NONE Discharging clinician: Daniela Gregory Anticipated date of discharge: 10/17/18 - Patient Status Disposition: Home, Self-Care Condition: Good Functional capacity at discharge: independent ambulation Overall status at discharge: patient is progressing back to baseline - Discharge Instructions Follow Up With: NONE,PCP [Primary Care Provider] - - Diet and Activity Activity: resume usual activities as tolerated Diet: regular diet 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 Attestation: Total time spent providing and/or coordinating discharge services: Exam - Constitutional General appearance IM: A&O X 3, pleasant, no acute distress, answers questions appropriately - Respiratory Respiratory exam: Present: CTAB - Cardiovascular Cardiovascular exam IM: Present: RRR, +S1, +S2 - GI/Abdominal GI/Abdominal exam IM: normal bowel sounds, soft - Rectal Rectal exam: deferred - External exam: normal external exam - Extremities Exam Extremities exam IM: Present: full ROM, normal capillary refill, normal inspection - Neurological Exam Neurological exam: alert, normal gait, oriented X3 - VTE Reasons for not Prescribing Prophylaxis: Treatment not Indicated - Low risk for VTE
[2018-10-17] MEDS ORDERED: 0.9 % Sodium Chloride 1,000 ML IVC ONE (15:36)
[2018-10-17] MEDS ORDERED: 0.9 % Sodium Chloride 1,000 ML ONE (15:37)
[2018-10-17] MEDS ORDERED: Ondansetron 4 MG/2 ML VIAL IVP ONE (15:40)
[2018-10-17] MEDS ORDERED: Ringers Solution, Lactated 1,000 ML IVC SCH (15:45)
[2018-10-17 16:08] LABS: Basophils % 0.4 %; Eosinophils # 0.1 K/mcL (0.0-0.6); Eosinophils % 0.6 %; Hematocrit 28.3 % (35.3-44.9); Immature Granulocytes % 1.6 % (0-4); Lymphocytes # 1.2 K/mcL (0.6-4.6); Lymphocytes % 14.5 %; Mean Corpuscular HGB Conc 31.8 g/dL (31.6-35.5); Mean Corpuscular Hemoglobin 26.4 pg (28.0-33.3); Monocytes # 0.6 K/mcL (0.0-1.3); Monocytes % 6.7 %; Neutrophils # 6.5 K/mcL (1.6-8.9); Platelet Count 178 K/mcL (140-400); Red Blood Count 3.41 M/mcL (3.82-4.97); Red Cell Distribution Width 16.2 % (11.5-14.5); Segmented Neutrophils % 76.2 %
[2018-10-17 17:04] LABS: Gardnerella DNA Not Detected (Not Detect)
[2018-10-17 17:05] LABS: Candida DNA Not Detected (Not Detect); Trichomonas DNA Not Detected (Not Detect)
[2018-10-17 17:23] LABS: Bilirubin,Urine Negative (Negative); Blood,Urine Moderate (Negative); Color,Urine Yellow (Yellow); Glucose,Urine (UA) Normal (Normal); Ketones,Urine Negative (Negative); Leukocyte Esterase,Urine Negative (Negative); Nitrite,Urine Negative (Negative); PH,Urine 8.5 pH Units (5.0-8.0); Protein,Urine 30 mg/dL (Neg-Trace); Urobilinogen,Urine Normal (Normal)
[2018-10-17 17:27] LABS: Clarity,Urine Hazy (Clear)
[2018-10-17 17:43] LABS: Amphetamine Screen,Urine Negative ng/mL (Cutoff=1000); Barbiturate Screen,Urine Negative ng/mL (Cutoff=200); Benzodiazepines Screen,Urine Negative ng/mL (Cutoff=200); Cannabinoid Screen,Urine Negative ng/mL (Cutoff = 50); Cocaine Screen,Urine Negative ng/mL (Cutoff= 300); Opiate Screen,Urine Negative ng/mL (Cutoff=300); Phencyclidine Screen,Urine Negative ng/mL (Cutoff=25)
[2018-10-17 18:58] LABS: Amorphous Sediment,Urine Moderate (Few); Squamous Epithelial Cell,Urine Few per lpf (None-Few); WBC,Urine 0-3 per hpf (0-3)
--- NOTE | 2018-10-17 19:55 | Discharge Summary ---
Date of Encounter: 10/17/18 Time of Encounter: 19:57 - Discharge Diagnosis (1) 33 weeks gestation of Priority: Primary Status: Acute Comments: Admit to observation for labor evaluation (2) NST (non-stress test) reactive on surveillance Priority: Secondary Status: Acute (3) Bacterial vaginosis Priority: Secondary Status: Acute Comments: Vaginosis panel positive for Gardnerella. Prescription given to patient for clindamycin gel 7 days. She was previously treated with MetroGel for bacterial vaginosis in July of this year. - Discharge Medications Prescriptions: No Action Lexapro 15 mg PO DAILY Vit #108/Iron/FA [ One Tablet] 1 each PO QDPC #30 tablet Lamotrigine 125 mg PO DAILY Ondansetron ODT [Zofran ODT] 4 mg SL Q6HR PRN #15 tab.rapdis PRN Reason: Nausea And Vomiting Home Medications: Lexapro 15 mg PO DAILY 11/10/17 [History] Vit #108/Iron/FA [ One Tablet] 1 each PO QDPC #30 tablet 05/08/18 [Rx] Lamotrigine 125 mg PO DAILY 08/09/18 [History] Ondansetron ODT [Zofran ODT] 4 mg SL Q6HR PRN #15 tab.rapdis 09/18/18 [Rx] Allergies/Adverse Reactions: Allergy/AdvReac Type Severity Reaction Status Date / Time Amoxicillin Allergy Nausea Verified 09/18/18 21:05 Penicillins Allergy Vomiting Verified 09/18/18 21:05 Data Procedures and tests throughout hospitalization: Laboratory Tests 10/17/18 10/17/18 10/17/18 14:20 14:20 14:20 WBC 8.6 RBC 3.41 L Hgb 9.0 L Hct 28.3 L MCV 83.0 MCH 26.4 L MCHC 31.8 RDW 16.2 H Plt Count 178 MPV 11.0 Immature Gran % 1.6 Seg Neutrophils % 76.2 Lymphocytes % 14.5 Monocytes % 6.7 Eosinophils % 0.6 Basophils % 0.4 Neutrophils # 6.5 Lymphocytes # 1.2 Monocytes # 0.6 Eosinophils # 0.1 Basophils # 0.0 Volume Blood 0 Ur Specimen Adequacy See below A Urine Color Yellow Urine Clarity Turbid A Urine pH 8.5 H Ur Specific [place] 1.025 Urine Protein 100 H Urine Glucose (UA) Normal Urine Ketones Negative Urine Blood Negative Urine Nitrite Negative Urine Bilirubin Negative Urine Urobilinogen Normal Ur Leukocyte Esterase Large H Urine Microscopic RBC 0-3 Urine Microscopic WBC 0-3 Ur Squamous Epith Cells Many H Urine Bacteria Many H Amorphous Sediment Urine Opiates Screen Ur Barbiturates Screen Ur Phencyclidine Scrn Ur Amphetamines Screen U Benzodiazepines Scrn Urine Cocaine Screen U Marijuana (THC) Screen Ur Drug Screen Interp Joselyn species DNA Gardnerella DNA Probe Trichomonas DNA Probe 10/17/18 10/17/18 10/17/18 15:35 15:35 15:35 WBC RBC Hgb Hct MCV MCH MCHC RDW Plt Count MPV Immature Gran % Seg Neutrophils % Lymphocytes % Monocytes % Eosinophils % Basophils % Neutrophils # Lymphocytes # Monocytes # Eosinophils # Basophils # Volume Blood Ur Specimen Adequacy See below A Urine Color Yellow Urine Clarity Hazy A Urine pH 8.5 H Ur Specific [place] 1.020 Urine Protein 30 H Urine Glucose (UA) Normal Urine Ketones Negative Urine Blood Moderate H Urine Nitrite Negative Urine Bilirubin Negative Urine Urobilinogen Normal Ur Leukocyte Esterase Negative Urine Microscopic RBC 3-5 H Urine Microscopic WBC 0-3 Ur Squamous Epith Cells Few Urine Bacteria Amorphous Sediment Moderate H Urine Opiates Screen Negative Ur Barbiturates Screen Negative Ur Phencyclidine Scrn Negative Ur Amphetamines Screen Negative U Benzodiazepines Scrn Negative Urine Cocaine Screen Negative U Marijuana (THC) Screen Negative Ur Drug Screen Interp See Below Joselyn species DNA Not Detected Gardnerella DNA Probe Not Detected Trichomonas DNA Probe Not Detected Labs on day of discharge: Labs from last 24 hours 10/17/18 10/17/18 10/17/18 15:35 15:35 15:35 WBC RBC Hgb Hct MCV MCH MCHC RDW Plt Count MPV Immature Gran % Seg Neutrophils % Lymphocytes % Monocytes % Eosinophils % Basophils % Neutrophils # Lymphocytes # Monocytes # Eosinophils # Basophils # Volume Blood Ur Specimen Adequacy See below A Urine Color Yellow Urine Clarity Hazy A Urine pH 8.5 H Ur Specific [place] 1.020 Urine Protein 30 H Urine Glucose (UA) Normal Urine Ketones Negative Urine Blood Moderate H Urine Nitrite Negative Urine Bilirubin Negative Urine Urobilinogen Normal Ur Leukocyte Esterase Negative Urine Microscopic RBC 3-5 H Urine Microscopic WBC 0-3 Ur Squamous Epith Cells Few Urine Bacteria Amorphous Sediment Moderate H Urine Opiates Screen Negative Ur Barbiturates Screen Negative Ur Phencyclidine Scrn Negative Ur Amphetamines Screen Negative U Benzodiazepines Scrn Negative Urine Cocaine Screen Negative U Marijuana (THC) Screen Negative Ur Drug Screen Interp See Below Joselyn species DNA Not Detected Gardnerella DNA Probe Not Detected Trichomonas DNA Probe Not Detected 10/17/18 10/17/18 10/17/18 14:20 14:20 14:20 WBC 8.6 RBC 3.41 L Hgb 9.0 L Hct 28.3 L MCV 83.0 MCH 26.4 L MCHC 31.8 RDW 16.2 H Plt Count 178 MPV 11.0 Immature Gran % 1.6 Seg Neutrophils % 76.2 Lymphocytes % 14.5 Monocytes % 6.7 Eosinophils % 0.6 Basophils % 0.4 Neutrophils # 6.5 Lymphocytes # 1.2 Monocytes # 0.6 Eosinophils # 0.1 Basophils # 0.0 Volume Blood 0 Ur Specimen Adequacy See below A Urine Color Yellow Urine Clarity Turbid A Urine pH 8.5 H Ur Specific [place] 1.025 Urine Protein 100 H Urine Glucose (UA) Normal Urine Ketones Negative Urine Blood Negative Urine Nitrite Negative Urine Bilirubin Negative Urine Urobilinogen Normal Ur Leukocyte Esterase Large H Urine Microscopic RBC 0-3 Urine Microscopic WBC 0-3 Ur Squamous Epith Cells Many H Urine Bacteria Many H Amorphous Sediment Urine Opiates Screen Ur Barbiturates Screen Ur Phencyclidine Scrn Ur Amphetamines Screen U Benzodiazepines Scrn Urine Cocaine Screen U Marijuana (THC) Screen Ur Drug Screen Interp Joselyn species DNA Gardnerella DNA Probe Trichomonas DNA Probe Date of admission: 10/17/18 13:58 Primary care physician: PCP NONE Discharging clinician: Daniela Gregory Anticipated date of discharge: 10/17/18 - Patient Status Disposition: Home, Self-Care Condition: Good Functional capacity at discharge: independent ambulation Overall status at discharge: patient is progressing back to baseline - Discharge Instructions Follow Up With: NONE,PCP [Primary Care Provider] - - Diet and Activity Activity: resume usual activities as tolerated Diet: regular diet 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 She does report positive movement, denies vaginal bleeding and fluid leakage. She is having some abdominal pain but is unable to tell if it is contractions. She states that she was treated for Trichomonas earlier in and does have some concern that has reoccurred. A vaginosis panel was collected with a sterile speculum exam. Small amount of white vaginal discharge noted in vaginal vault. Unable to visualize cervix. SVE was closed thick and high. 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 The large condyloma noted to be bleeding at the base and patient complaints of discomfort in that area. Patient was also complaining of lower extremity swelling and at times she feels like her feet are tingling from the amount of swelling she is having. She reports she had cardiomyopathy with her previous delivery and had a . She reports the swelling she is currently having is similar to what she had in her previous . Her pulse ox was greater than 95% throughout her stay and vitals were within normal limits. Urinalysis was unremarkable and vaginosis panel returned positive for bacterial vaginosis. She was treated for the same thing in July with MetroGel. She has been given a prescription for clindamycin gel for 7 days. She has an appointment with Dr. Hernandez for routine care tomorrow at which time she is instructed to discuss removal of genital warts due to them being painful. Time Attestation: Total time spent providing and/or coordinating discharge services: Time Spent: Less than 30 minutes Exam - Constitutional General appearance IM: A&O X 3, pleasant, no acute distress, answers questions appropriately - Respiratory Respiratory exam: Present: CTAB - Cardiovascular Cardiovascular exam IM: Present: RRR, +S1, +S2 - GI/Abdominal GI/Abdominal exam IM: normal bowel sounds, soft - Rectal Rectal exam: deferred - Additional comments: 2 skin tags noted on vulva, one marble sized and both appear like genital warts. Patient states the largest one has developed over the last couple of weeks. - Extremities Exam Extremities exam IM: Present: full ROM, normal capillary refill, normal inspection - Neurological Exam Neurological exam: alert, normal gait, oriented X3 - VTE Reasons for not Prescribing Prophylaxis: Treatment not Indicated - Low risk for VTE
--- NOTE | 2018-10-17 21:08 | Discharge Summary ---
Date of Encounter: 10/17/18 Time of Encounter: 21:15 - Discharge Diagnosis (1) 33 weeks gestation of Priority: Primary Status: Acute Comments: Admit to observation for status post fall during third trimester (2) Status post fall Priority: Primary Status: Acute Comments: Patient reports she fell in her bathtub at approximately 9:00 this morning. She reports hitting her belly on the side of the bathtub. (3) NST (non-stress test) reactive on surveillance Priority: Secondary Status: Acute Comments: FHR 130 bpm, moderate variability, +15 x 15 accelerations, no decelerations. (4) Diarrhea Priority: Secondary Status: Acute Comments: Patient states she has been having diarrhea today. Treated with Imodium Qualifiers: Diarrhea type: unspecified type Qualified Code(s): R19.7 - Diarrhea, unspecified (5) Abdominal pain during in third trimester Priority: Secondary Status: Acute Comments: Admitted for observation due to fall in third trimester. (6) Frequency of urination Priority: Secondary Status: Acute Comments: Patient states she has been urinating freckly for the past 2 days. Urine sample obtained via straight catheter. Due to CVA tenderness and urinary difficulty retroperitoneal ultrasound was ordered. - Result of ultrasound showed bilateral hydronephrosis, worse on the right with only right ureteral jet visualized. No stones noted on ultrasound report (7) Blood type O- Priority: Secondary Status: Acute Comments: Kleihauer-Betke drawn and negative (8) Anemia affecting in third trimester Priority: Secondary Status: Acute Comments: Hemoglobin was 9.0 on CBC today. -Ferrous sulfate prescription sent to pharmacy for twice a day dosing. -Telephone encounter sent to Dr. Raza to notify her of lab results - Discharge Medications Prescriptions: No Action Lexapro 15 mg PO DAILY Vit #108/Iron/FA [ One Tablet] 1 each PO QDPC #30 tablet Lamotrigine 125 mg PO DAILY Ondansetron ODT [Zofran ODT] 4 mg SL Q6HR PRN #15 tab.rapdis PRN Reason: Nausea And Vomiting Home Medications: Lexapro 15 mg PO DAILY 11/10/17 [History] Vit #108/Iron/FA [ One Tablet] 1 each PO QDPC #30 tablet 05/08/18 [Rx] Lamotrigine 125 mg PO DAILY 08/09/18 [History] Ondansetron ODT [Zofran ODT] 4 mg SL Q6HR PRN #15 tab.rapdis 09/18/18 [Rx] Allergies/Adverse Reactions: Allergy/AdvReac Type Severity Reaction Status Date / Time Amoxicillin Allergy Nausea Verified 09/18/18 21:05 Penicillins Allergy Vomiting Verified 09/18/18 21:05 Data Procedures and tests throughout hospitalization: Laboratory Tests 10/17/18 10/17/18 10/17/18 14:20 14:20 14:20 WBC 8.6 RBC 3.41 L Hgb 9.0 L Hct 28.3 L MCV 83.0 MCH 26.4 L MCHC 31.8 RDW 16.2 H Plt Count 178 MPV 11.0 Immature Gran % 1.6 Seg Neutrophils % 76.2 Lymphocytes % 14.5 Monocytes % 6.7 Eosinophils % 0.6 Basophils % 0.4 Neutrophils # 6.5 Lymphocytes # 1.2 Monocytes # 0.6 Eosinophils # 0.1 Basophils # 0.0 Volume Blood 0 Ur Specimen Adequacy See below A Urine Color Yellow Urine Clarity Turbid A Urine pH 8.5 H Ur Specific [place] 1.025 Urine Protein 100 H Urine Glucose (UA) Normal Urine Ketones Negative Urine Blood Negative Urine Nitrite Negative Urine Bilirubin Negative Urine Urobilinogen Normal Ur Leukocyte Esterase Large H Urine Microscopic RBC 0-3 Urine Microscopic WBC 0-3 Ur Squamous Epith Cells Many H Urine Bacteria Many H Amorphous Sediment Urine Opiates Screen Ur Barbiturates Screen Ur Phencyclidine Scrn Ur Amphetamines Screen U Benzodiazepines Scrn Urine Cocaine Screen U Marijuana (THC) Screen Ur Drug Screen Interp Joselyn species DNA Gardnerella DNA Probe Trichomonas DNA Probe 10/17/18 10/17/18 10/17/18 15:35 15:35 15:35 WBC RBC Hgb Hct MCV MCH MCHC RDW Plt Count MPV Immature Gran % Seg Neutrophils % Lymphocytes % Monocytes % Eosinophils % Basophils % Neutrophils # Lymphocytes # Monocytes # Eosinophils # Basophils # Volume Blood Ur Specimen Adequacy See below A Urine Color Yellow Urine Clarity Hazy A Urine pH 8.5 H Ur Specific [place] 1.020 Urine Protein 30 H Urine Glucose (UA) Normal Urine Ketones Negative Urine Blood Moderate H Urine Nitrite Negative Urine Bilirubin Negative Urine Urobilinogen Normal Ur Leukocyte Esterase Negative Urine Microscopic RBC 3-5 H Urine Microscopic WBC 0-3 Ur Squamous Epith Cells Few Urine Bacteria Amorphous Sediment Moderate H Urine Opiates Screen Negative Ur Barbiturates Screen Negative Ur Phencyclidine Scrn Negative Ur Amphetamines Screen Negative U Benzodiazepines Scrn Negative Urine Cocaine Screen Negative U Marijuana (THC) Screen Negative Ur Drug Screen Interp See Below Joselyn species DNA Not Detected Gardnerella DNA Probe Not Detected Trichomonas DNA Probe Not Detected Labs on day of discharge: Labs from last 24 hours 10/17/18 10/17/18 10/17/18 15:35 15:35 15:35 WBC RBC Hgb Hct MCV MCH MCHC RDW Plt Count MPV Immature Gran % Seg Neutrophils % Lymphocytes % Monocytes % Eosinophils % Basophils % Neutrophils # Lymphocytes # Monocytes # Eosinophils # Basophils # Volume Blood Ur Specimen Adequacy See below A Urine Color Yellow Urine Clarity Hazy A Urine pH 8.5 H Ur Specific [place] 1.020 Urine Protein 30 H Urine Glucose (UA) Normal Urine Ketones Negative Urine Blood Moderate H Urine Nitrite Negative Urine Bilirubin Negative Urine Urobilinogen Normal Ur Leukocyte Esterase Negative Urine Microscopic RBC 3-5 H Urine Microscopic WBC 0-3 Ur Squamous Epith Cells Few Urine Bacteria Amorphous Sediment Moderate H Urine Opiates Screen Negative Ur Barbiturates Screen Negative Ur Phencyclidine Scrn Negative Ur Amphetamines Screen Negative U Benzodiazepines Scrn Negative Urine Cocaine Screen Negative U Marijuana (THC) Screen Negative Ur Drug Screen Interp See Below Joselyn species DNA Not Detected Gardnerella DNA Probe Not Detected Trichomonas DNA Probe Not Detected 10/17/18 10/17/18 10/17/18 14:20 14:20 14:20 WBC 8.6 RBC 3.41 L Hgb 9.0 L Hct 28.3 L MCV 83.0 MCH 26.4 L MCHC 31.8 RDW 16.2 H Plt Count 178 MPV 11.0 Immature Gran % 1.6 Seg Neutrophils % 76.2 Lymphocytes % 14.5 Monocytes % 6.7 Eosinophils % 0.6 Basophils % 0.4 Neutrophils # 6.5 Lymphocytes # 1.2 Monocytes # 0.6 Eosinophils # 0.1 Basophils # 0.0 Volume Blood 0 Ur Specimen Adequacy See below A Urine Color Yellow Urine Clarity Turbid A Urine pH 8.5 H Ur Specific [place] 1.025 Urine Protein 100 H Urine Glucose (UA) Normal Urine Ketones Negative Urine Blood Negative Urine Nitrite Negative Urine Bilirubin Negative Urine Urobilinogen Normal Ur Leukocyte Esterase Large H Urine Microscopic RBC 0-3 Urine Microscopic WBC 0-3 Ur Squamous Epith Cells Many H Urine Bacteria Many H Amorphous Sediment Urine Opiates Screen Ur Barbiturates Screen Ur Phencyclidine Scrn Ur Amphetamines Screen U Benzodiazepines Scrn Urine Cocaine Screen U Marijuana (THC) Screen Ur Drug Screen Interp Joselyn species DNA Gardnerella DNA Probe Trichomonas DNA Probe - Impressions ITS Impressions Retroperitoneum Ultrasound 10/17/18 16:02 IMPRESSION: Bilateral hydronephrosis, greater on the right. No shadowing renal pelvic stones. D/ / Tessa Langston Cha, MD / Tessa Langston Cha, MD Interpreting Provider: Tessa Langston Cha, MD Date of admission: 10/17/18 13:58 Primary care physician: PCP KENNEDY Discharging clinician: Daniela Gregory Anticipated date of discharge: 10/17/18 - Patient Status Disposition: Home, Self-Care Condition: Good Functional capacity at discharge: independent ambulation Overall status at discharge: patient is progressing back to baseline - Discharge Instructions Follow Up With: NONE,PCP [Primary Care Provider] - Additional Instructions: KEEP ALL OB APPOINTMENTS LABOR AND DELIVERY DISCHARGE INSTRUCTIONS Signs and Symptoms to be Reported to your Doctor Immediately: * Sudden gush, continuous or intermittent lead of fluid from vagina (note the time of gush and color of fluid) * Onset of bright red vaginal bleeding with or without pain (if you had a vaginal exam during this visit you may notice some dark red spotting. This is normal.) * Lower abdominal cramping or backache that is premenstrual-like feeling. * More than 6 contractions in one hour. * Burning during urination, having to urinate more frequently or pain in your mid-back. * A change in the baby's activity. This could be an increase or decrease in activity. * Severe headache which does not go away with tylenol. * Sudden swelling in the face, hands, arms and/or legs. * Upper abdominal pain - sometimes associated with heartburn or nausea and is not relieved by Maalox, Mylanta or Tums. * Dizziness or blurred vision or visual disturbances (seeing stars/lights). * Kick Counts One hour after a meal, lay down on one side in a quiet place. Count the number of kathie the baby moves during an hour. If less than 6 movements, notify your physician. Diet: *Force fluids - 8-10 tall glasses of fluid per day. May include popsicles and jello. *Limit caffeine - this includes chocolate, coffee, tea, any soft drink containing such as all homar, Jag Yellow and Mountain Dew - Diet and Activity Activity: resume usual activities as tolerated Diet: regular diet Hospital Course [employer] Hospital course: Summary arrived today after she fell in the bathtub while cleaning. She reports to call happened at approximately 9:00 this morning and she fell directly on her abdomen on the side of the bathtub. She states she has had decreased movement since the fall. She denies vaginal leakage, bleeding, and contractions. Her blood type is O- so a Kleihauer-Betke was drawn and did return negative. After patient was here for short period of time she began to complain of severe abdominal pain that she thought could be contractions and also was having intense back pain. On exam she was found to have mild CVA tenderness and she also complained of having urinary frequency for the past 2 days but feels as though she states dribbling. She was unable to urinate enough for an adequate urinalysis so a straight catheter sample was obtained and sent to the lab. Due to exam findings and patient complaints a retroperitoneal ultrasound was ordered. Patient was IV hydrated so ultrasound could be performed. Urinalysis was unremarkable, CBC showed anemia, drug screen negative. Patient was given by mouth Tylenol for her discomfort and labor precautions. Patient has an appointment with Dr. Gates on 10/28/18. She is encouraged to call the office and make an earlier appointment if she continues to have issues. Ultrasound report as listed below: FINDINGS: Kidneys: The right kidney measures 13.1 cm in length and the left kidney measures 13.0 cm in length. The kidneys show normal contour and parenchymal echogenicity. There is bilateral hydronephrosis, greater on the right. No shadowing renal pelvic stones are identified. Bladder: The urinary bladder is within normal limits. Only the right ureteral jet was visualized. IMPRESSION: Bilateral hydronephrosis, greater on the right. No shadowing renal pelvic stones. D/ / Tessa Langston Cha, MD / Tessa Langston Cha, MD Interpreting Provider: Tessa Langston Cha, MD NDUM: The report should be corrected. Both ureteral jets were visualized; however, the right ureteral jet was visualized only when the patient was in a right posterior oblique position. D/ / Tessa Langston Cha, MD / Tessa Langston Cha, MD Interpreting Provider: Tessa Langston Cha, MD R #: [id number] US/US retroperitoneal comp IMPRESSION: Bilateral hydronephrosis, greater on the right. No shadowing renal pelvic stones. D/ / Tessa Langston Cha, MD / Tessa Langston Cha, MD Interpreting Provider: Tessa Langston Cha, MD Time Attestation: Total time spent providing and/or coordinating discharge services: Time Spent: Less than 30 minutes Exam - Constitutional General appearance IM: A&O X 3, pleasant, no acute distress, answers questions appropriately - Respiratory Respiratory exam: Present: CTAB - Cardiovascular Cardiovascular exam IM: Present: RRR, +S1, +S2 - GI/Abdominal GI/Abdominal exam IM: normal bowel sounds, soft - Rectal Rectal exam: deferred - Extremities Exam Extremities exam IM: Present: full ROM, normal inspection - Neurological Exam Neurological exam: alert, normal gait, oriented X3 - VTE Reasons for not Prescribing Prophylaxis: Treatment not Indicated - Low risk for VTE
== END 2018-10-17 21:00 | disposition home or self-care (01) ==
LOC: 1NENULAB
PROVIDERS: ADMIT Registered Nurse; ATTEND Registered Nurse

== ENCOUNTER → 2018-11-06 17:39 | Observation (INO) ==
[2018-11-06 12:51] LABS: Bilirubin,Urine Negative (Negative); Blood,Urine Moderate (Negative); Color,Urine Yellow (Yellow); Glucose,Urine (UA) Normal (Normal); Ketones,Urine Negative (Negative); Leukocyte Esterase,Urine Moderate (Negative); Nitrite,Urine Negative (Negative); PH,Urine 6.5 pH Units (5.0-8.0); Protein,Urine Negative (Neg-Trace); Specific Gravity,Urine 1.017 (1.010-1.025); Urobilinogen,Urine Normal (Normal)
[2018-11-06 12:53] LABS: Bacteria,Urine Many per hpf (None-Few); Hyaline Casts,Urine None Seen per lpf (None-Few); RBC,Urine 0-3 per hpf (0-3); Squamous Epithelial Cell,Urine Many per lpf (None-Few); WBC,Urine 30-50 per hpf (0-3)
[2018-11-06 12:56] LABS: Clarity,Urine Slightly Hazy (Clear)
[2018-11-06 12:59] LABS: Amphetamine Screen,Urine Negative ng/mL (Cutoff=1000); Barbiturate Screen,Urine Negative ng/mL (Cutoff=200); Benzodiazepines Screen,Urine Negative ng/mL (Cutoff=200); Cannabinoid Screen,Urine Negative ng/mL (Cutoff = 50); Cocaine Screen,Urine Negative ng/mL (Cutoff= 300); Opiate Screen,Urine Negative ng/mL (Cutoff=300); Phencyclidine Screen,Urine Negative ng/mL (Cutoff=25)
[2018-11-06 14:26] LABS: Candida DNA Not Detected (Not Detect); Gardnerella DNA Not Detected (Not Detect); Trichomonas DNA Not Detected (Not Detect)
--- NOTE | 2018-11-06 17:16 | Discharge Summary ---
Date of Encounter: 11/06/18 Time of Encounter: 17:16 - Discharge Diagnosis (1) 36 weeks gestation of Priority: Primary Status: Acute Comments: Admitted to observation for labor evaluation (2) NST (non-stress test) reactive on surveillance Priority: Secondary Status: Acute Comments: Category 1 heart rate tracing, +15 x 15 accelerations, no decelerations. (3) Abdominal pain during in third trimester Priority: Secondary Status: Acute Comments: Continuous and contraction monitoring - Discharge Medications Prescriptions: No Action Lexapro 15 mg PO DAILY Vit #108/Iron/FA [ One Tablet] 1 each PO QDPC #30 tablet Lamotrigine 125 mg PO DAILY Ondansetron ODT [Zofran ODT] 4 mg SL Q6HR PRN #15 tab.rapdis PRN Reason: Nausea And Vomiting Home Medications: Lexapro 15 mg PO DAILY 11/10/17 [History] Vit #108/Iron/FA [ One Tablet] 1 each PO QDPC #30 tablet 05/08/18 [Rx] Lamotrigine 125 mg PO DAILY 08/09/18 [History] Ondansetron ODT [Zofran ODT] 4 mg SL Q6HR PRN #15 tab.rapdis 09/18/18 [Rx] Allergies/Adverse Reactions: Allergy/AdvReac Type Severity Reaction Status Date / Time Amoxicillin Allergy Nausea Verified 09/18/18 21:05 Penicillins Allergy Vomiting Verified 09/18/18 21:05 Data Procedures and tests throughout hospitalization: Laboratory Tests 11/06/18 11/06/18 11/06/18 12:35 12:35 12:35 Urine Color Yellow Urine Clarity Slightly Hazy Urine pH 6.5 Ur Specific [place] 1.017 Urine Protein Negative Urine Glucose (UA) Normal Urine Ketones Negative Urine Blood Moderate H Urine Nitrite Negative Urine Bilirubin Negative Urine Urobilinogen Normal Ur Leukocyte Esterase Moderate H Urine Microscopic RBC 0-3 Urine Microscopic WBC 30-50 H Ur Squamous Epith Cells Many H Urine Bacteria Many H Hyaline Casts None Seen Ur Culture Indicated? YES A Urine Opiates Screen Negative Ur Barbiturates Screen Negative Ur Phencyclidine Scrn Negative Ur Amphetamines Screen Negative U Benzodiazepines Scrn Negative Urine Cocaine Screen Negative U Marijuana (THC) Screen Negative Ur Drug Screen Interp See Below Joselyn species DNA Not Detected Gardnerella DNA Probe Not Detected Trichomonas DNA Probe Not Detected Labs on day of discharge: Labs from last 24 hours 11/06/18 11/06/18 11/06/18 12:35 12:35 12:35 Urine Color Yellow Urine Clarity Slightly Hazy Urine pH 6.5 Ur Specific [place] 1.017 Urine Protein Negative Urine Glucose (UA) Normal Urine Ketones Negative Urine Blood Moderate H Urine Nitrite Negative Urine Bilirubin Negative Urine Urobilinogen Normal Ur Leukocyte Esterase Moderate H Urine Microscopic RBC 0-3 Urine Microscopic WBC 30-50 H Ur Squamous Epith Cells Many H Urine Bacteria Many H Hyaline Casts None Seen Ur Culture Indicated? YES A Urine Opiates Screen Negative Ur Barbiturates Screen Negative Ur Phencyclidine Scrn Negative Ur Amphetamines Screen Negative U Benzodiazepines Scrn Negative Urine Cocaine Screen Negative U Marijuana (THC) Screen Negative Ur Drug Screen Interp See Below Joselyn species DNA Not Detected Gardnerella DNA Probe Not Detected Trichomonas DNA Probe Not Detected Preliminary micro results at discharge 11/06/18 12:35 Urine Culture - Preliminary Urine,Clean Catch Culture is incubating. Date of admission: 11/06/18 12:10 Discharging clinician: Daniela Gregory Anticipated date of discharge: 11/06/18 - Patient Status Disposition: Home, Self-Care Condition: Good Functional capacity at discharge: independent ambulation Overall status at discharge: patient is progressing back to baseline - Discharge Instructions Follow Up With: Gisell Gates MD [Partnered Physician] - Additional Instructions: LABOR AND DELIVERY DISCHARGE INSTRUCTIONS Signs and Symptoms to be Reported to your Doctor Immediately: * Sudden gush, continuous or intermittent lead of fluid from vagina (note the time of gush and color of fluid) * Onset of bright red vaginal bleeding with or without pain (if you had a vaginal exam during this visit you may notice some dark red spotting. This is normal.) * Lower abdominal cramping or backache that is premenstrual-like feeling. * More than 6 contractions in one hour. * Burning during urination, having to urinate more frequently or pain in your mid-back. * A change in the baby's activity. This could be an increase or decrease in activity. * Severe headache which does not go away with tylenol. * Sudden swelling in the face, hands, arms and/or legs. * Upper abdominal pain - sometimes associated with heartburn or nausea and is not relieved by Maalox, Mylanta or Tums. * Dizziness or blurred vision or visual disturbances (seeing stars/lights). * Kick Counts One hour after a meal, lay down on one side in a quiet place. Count the number of kathie the baby moves during an hour. If less than 6 movements, notify your physician. Diet: *Force fluids - 8-10 tall glasses of fluid per day. May include popsicles and jello. *Limit caffeine - this includes chocolate, coffee, tea, any soft drink containing such as all homar, Jag Yellow and Mountain Dew - Diet and Activity Activity: resume usual activities as tolerated Diet: regular diet Hospital Course [employer] Hospital course: Patient arrived with complaints of some vaginal bleeding and abdominal pain as well as back pain. She had previously been admitted to [facility] yesterday for vaginal bleeding and at that point received steroids and her second dose was given there this morning. On arrival sterile speculum exam was completed small amount of brown blood was noted in vaginal vault along with normal white vaginal discharge. Vaginosis panel was collected and returned negative. Sterile vaginal exam on arrival was 4 cm 75% and -2 station. Approximately 2 hours later she was 5 cm dilated. In another 2 hours she was unchanged at 5 cm. There were rare contractions noted while she was here. Patient was informed that she would have to make it to 6 cm before she could be admitted for spontaneous labor and she understands this. He was given labor precautions and instructed to come back if the contractions become worse or if her water breaks or she experiences vaginal bleeding. She expressed concern that she would not make it back and time to the hospital but she is staying with her aunt who was approximately 10 minutes from the hospital. She was encouraged to call the ambulance if she did not feel she could make here and time. She does not return in spontaneous labor she is to follow-up with her OB provider, Dr. Gates, as scheduled for routine care. Time Attestation: Total time spent providing and/or coordinating discharge services: Time Spent: Less than 30 minutes Exam - Constitutional General appearance IM: A&O X 3, no acute distress - Respiratory Respiratory exam: Present: CTAB. Absent: respiratory distress - Cardiovascular Cardiovascular exam IM: Present: RRR. Absent: irregular rhythm - GI/Abdominal GI/Abdominal exam IM: normal bowel sounds Incision: normal, dry, intact - Rectal Rectal exam: deferred - External exam: normal external exam - Extremities Exam Extremities exam IM: Present: full ROM, normal capillary refill, warm. Absent: calf tenderness - Neurological Exam Neurological exam: alert, normal gait, oriented X3 - VTE Reasons for not Prescribing Prophylaxis: Treatment not Indicated - Low risk for VTE
[~2018-11-06 17:39] MED LIST changes: -CeFAZolin Premix DUPLEX 2,000 MG/50 ML BAG IVPB ONE; -CefTRIAXone 1,000 MG VIAL IM ONE; -Ondansetron ODT 4 MG TAB.RAPDIS SL ONE; -ceFAZolin 2,000 MG in D5% in Water 100 ML IVPB ONE; +hydrOXYzine pamoate 25 MG CAPSULE PO STA
== END | disposition home or self-care (01) ==
LOC: 1NENULAB
PROVIDERS: ADMIT Registered Nurse; ATTEND Registered Nurse

== ENCOUNTER → 2018-11-07 07:00 | Observation (INO) ==
[~2018-11-07 07:00] MED LIST changes: +*HR* Nalbuphine 10 MG/ML AMPUL IV PRN; -hydrOXYzine pamoate 25 MG CAPSULE PO STA
--- NOTE | 2018-11-07 08:15 | Discharge Summary ---
Date of Encounter: 11/07/18 Time of Encounter: 08:14 - Discharge Diagnosis (1) 36 weeks gestation of Priority: Primary Status: Acute Comments: Admitted to observation for contractions. (2) NST (non-stress test) reactive on surveillance Priority: Secondary Status: Acute Comments: Category I tracing, +15x15 accels, no decels. (3) uterine contractions in third trimester, antepartum Priority: Secondary Status: Acute Comments: Irregular contractions noted on monitor. No cervical change in >4 hours. - Discharge Medications Prescriptions: No Action Lexapro 15 mg PO DAILY Vit #108/Iron/FA [ One Tablet] 1 each PO QDPC #30 tablet Lamotrigine 125 mg PO DAILY Ondansetron ODT [Zofran ODT] 4 mg SL Q6HR PRN #15 tab.rapdis PRN Reason: Nausea And Vomiting Home Medications: Lexapro 15 mg PO DAILY 11/10/17 [History] Vit #108/Iron/FA [ One Tablet] 1 each PO QDPC #30 tablet 05/08/18 [Rx] Lamotrigine 125 mg PO DAILY 08/09/18 [History] Ondansetron ODT [Zofran ODT] 4 mg SL Q6HR PRN #15 tab.rapdis 09/18/18 [Rx] Allergies/Adverse Reactions: Allergy/AdvReac Type Severity Reaction Status Date / Time Amoxicillin Allergy Nausea Verified 11/06/18 23:58 Penicillins Allergy Vomiting Verified 11/06/18 23:58 Date of admission: 11/06/18 23:18 Primary care physician: Gisell Gates MD Discharging clinician: Daniela Gregory Anticipated date of discharge: 11/07/18 - Patient Status Disposition: Home, Self-Care Condition: Good Functional capacity at discharge: independent ambulation Overall status at discharge: patient is progressing back to baseline - Discharge Instructions Follow Up With: Gisell Gates MD [Primary Care Provider] - Additional Instructions: LABOR AND DELIVERY DISCHARGE INSTRUCTIONS Signs and Symptoms to be Reported to your Doctor Immediately: * Sudden gush, continuous or intermittent lead of fluid from vagina (note the time of gush and color of fluid) * Onset of bright red vaginal bleeding with or without pain (if you had a vaginal exam during this visit you may notice some dark red spotting. This is normal.) * Lower abdominal cramping or backache that is premenstrual-like feeling. * More than 6 contractions in one hour. * Burning during urination, having to urinate more frequently or pain in your mid-back. * A change in the baby's activity. This could be an increase or decrease in activity. * Severe headache which does not go away with tylenol. * Sudden swelling in the face, hands, arms and/or legs. * Upper abdominal pain - sometimes associated with heartburn or nausea and is not relieved by Maalox, Mylanta or Tums. * Dizziness or blurred vision or visual disturbances (seeing stars/lights). * Kick Counts One hour after a meal, lay down on one side in a quiet place. Count the number of kathie the baby moves during an hour. If less than 6 movements, notify your physician. Diet: *Force fluids - 8-10 tall glasses of fluid per day. May include popsicles and jello. *Limit caffeine - this includes chocolate, coffee, tea, any soft drink containing such as all homar, Jag Yellow and Mountain Dew - Diet and Activity Activity: resume usual activities as tolerated Diet: regular diet Hospital Course [employer] Hospital course: Patient arrived by squad with complaint of abdominal pain and contractions. SVE was unchanged from previous admission earlier in the day at 5-6cm. She was given one dose of IV Nubain to help with pain and she slept throughout the night. Contractions were irregular and her cervix remained unchanged this morning. She is discharged with labor instructions and is to follow up with Dr. Gates as scheduled for routine visit. Time Attestation: Total time spent providing and/or coordinating discharge services: Time Spent: Less than 30 minutes Exam - Constitutional General appearance IM: A&O X 3, no acute distress - Respiratory Respiratory exam: Absent: respiratory distress - Cardiovascular Cardiovascular exam IM: Absent: irregular rhythm - GI/Abdominal GI/Abdominal exam IM: normal bowel sounds Incision: normal, dry, intact - Rectal Rectal exam: deferred - Extremities Exam Extremities exam IM: Present: full ROM, normal capillary refill. Absent: calf tenderness - Neurological Exam Neurological exam: alert, normal gait, oriented X3 - VTE Reasons for not Prescribing Prophylaxis: Treatment not Indicated - Low risk for VTE
== END | disposition home or self-care (01) ==
LOC: 1NENULAB
PROVIDERS: ADMIT Registered Nurse; ATTEND Registered Nurse

== ENCOUNTER → 2018-11-08 08:14 | Observation (INO) ==
[2018-11-08 00:09] LABS: Amphetamine Screen,Urine Negative ng/mL (Cutoff=1000); Barbiturate Screen,Urine Negative ng/mL (Cutoff=200); Benzodiazepines Screen,Urine Negative ng/mL (Cutoff=200); Cannabinoid Screen,Urine Negative ng/mL (Cutoff = 50); Cocaine Screen,Urine Negative ng/mL (Cutoff= 300); Opiate Screen,Urine Negative ng/mL (Cutoff=300); Phencyclidine Screen,Urine Negative ng/mL (Cutoff=25)
[2018-11-08 00:15] LABS: Bilirubin,Urine Negative (Negative); Blood,Urine Large (Negative); Clarity,Urine Turbid (Clear); Color,Urine Yellow (Yellow); Glucose,Urine (UA) Normal (Normal); Ketones,Urine Negative (Negative); Leukocyte Esterase,Urine Small (Negative); Nitrite,Urine Negative (Negative); Protein,Urine Trace mg/dL (Neg-Trace); Specific Gravity,Urine 1.018 (1.010-1.025); Urobilinogen,Urine Normal (Normal)
[2018-11-08 00:19] LABS: Hyaline Casts,Urine None Seen per lpf (None-Few); RBC,Urine 50-100 per hpf (0-3); Squamous Epithelial Cell,Urine Many per lpf (None-Few)
[2018-11-08 00:28] LABS: Bacteria,Urine Few per hpf (None-Few)
--- NOTE | 2018-11-08 07:18 | OB/GYN Progress Note ---
Date of Encounter: 11/08/18 Time of Encounter: 07:17 - Assessment and Plan (1) 36 weeks gestation of Current Visit: No Status: Acute (2) uterine contractions in third trimester, antepartum Current Visit: No Status: Acute Patient monitored overnight for advanced dilation and continued contractions increasing in intensity. Patient medicated with Tylenol and 50 mg by mouth Benadryl for therapeutic rest. After initial first 2 hours patient did not make cervical change, however after 3 hours of therapeutic rest patient made cervical change from 5 cm to 5-6 cm and 90% effaced We will continue to monitor for 2 more hours discharge plans decided by Messi ARTEAGA at change of care Subjective - Subjective Interval history: 36+5 presents to triage with complaints of contractions. Patient reports increasing frequency of contractions in intensity over the day, also complains of leaking of fluid continues, also has noted light pink vaginal bleeding, since last being seen office. Reports good movement Antepartum ROS: loss of fluid, vaginal bleeding, movement normal, contractions Objective - Vital Signs Vital Signs: Intake and Output 11/07/18 11/07/18 11/08/18 15:59 23:59 07:59 Other: Weight 83.869 kg Patient Weight 11/08/18 23:59 Weight 83.869 kg - Exam FHR: auscultation normal FHR comments: Baseline 135 Abdomen: Present: normal appearance, soft, gravid Cervical dilation: 5-6/90/-2 - Labs Labs: Abnormal lab results Turbid (Clear) A 11/07/18 23:50 Large (Negative) H 11/07/18 23:50 Ur Leukocyte Esterase Small (Negative) H 11/07/18 23:50 50-100 per hpf (0-3) H 11/07/18 23:50 5-15 per hpf (0-3) H 11/07/18 23:50 Ur Squamous Epith Cells Many per lpf (None-Few) H 11/07/18 23:50 Ur Culture Indicated? YES (NO) A 11/07/18 23:50
[~2018-11-08 08:14] MED LIST changes: +Acetaminophen 325 MG TABLET PO ONE; +Ringers Solution, Lactated 1,000 ML IVC ONE; +Ringers Solution, Lactated 1,000 ML IVC SCH
== END | disposition home or self-care (01) ==
LOC: 1NENULAB
PROVIDERS: ADMIT Advanced Practice Midwife; ATTEND Advanced Practice Midwife

== ENCOUNTER 2018-11-08 21:22 | Inpatient (IN) ==
[2018-11-08 20:52] LABS: Bilirubin,Urine Negative (Negative); Blood,Urine Negative (Negative); Clarity,Urine Turbid (Clear); Color,Urine Yellow (Yellow); Glucose,Urine (UA) Normal (Normal); Ketones,Urine Negative (Negative); Leukocyte Esterase,Urine Trace (Negative); Nitrite,Urine Negative (Negative); Protein,Urine Negative (Neg-Trace); Specific Gravity,Urine 1.011 (1.010-1.025); Urobilinogen,Urine Normal (Normal)
[2018-11-08 20:55] LABS: Bacteria,Urine None Seen per hpf (None-Few); Hyaline Casts,Urine None Seen per lpf (None-Few); Squamous Epithelial Cell,Urine Many per lpf (None-Few)
[2018-11-08 21:01] LABS: Amphetamine Screen,Urine Negative ng/mL (Cutoff=1000); Barbiturate Screen,Urine Negative ng/mL (Cutoff=200); Benzodiazepines Screen,Urine Negative ng/mL (Cutoff=200); Cannabinoid Screen,Urine Negative ng/mL (Cutoff = 50); Cocaine Screen,Urine Negative ng/mL (Cutoff= 300); Opiate Screen,Urine Negative ng/mL (Cutoff=300); Phencyclidine Screen,Urine Negative ng/mL (Cutoff=25)
[~2018-11-08 21:22] MED LIST changes: -*HR* Nalbuphine 10 MG/ML AMPUL IV PRN; +*HR* Nalbuphine 10 MG/ML AMPUL IVP PRN; -Acetaminophen 325 MG TABLET PO ONE; +Famotidine 20 MG/2 ML VIAL IVP PRN; +Lidocaine 1% 20 ML MDV INFILT PRN; +Metoclopramide 10 MG/2 ML VIAL IVP PRN; +Naloxone 0.4 MG/ML INJ IVP PRN; +Ondansetron 4 MG/2 ML VIAL IVP PRN; +Oxytocin 20 units/ LR 1000 mL 20 UNIT/1,000 ML BAG IVC SCH; -Ringers Solution, Lactated 1,000 ML IVC ONE
--- NOTE | 2018-11-08 21:24 | OB/GYN History & Physical ---
Date of Encounter: 11/08/18 Time of Encounter: 21:12 Assessment and Plan (1) PROM with onset of labor within 24 hours of rupture Current visit: Yes Status: Acute Admit to L&D for observation of labor Active management Start Pitocin and increase to adequate labor pattern Pain management plan is epidural-may have upon request Labs-CBC and type and screen Continuous electronic monitoring Next status evaluation 2 hours Anticipate vaginal delivery Plan of care per consult with Dr. Rossi Qualifiers: PROM gestational age: -third trimester Qualified Code(s): O42.013 - premature rupture of membranes, onset of labor within 24 hours of rupture, third trimester (2) Intrauterine Current visit: Yes Status: Acute (3) 36 weeks gestation of Current visit: No Status: Acute (4) Blood type O- Current visit: No Status: Acute Cord blood will be collected at time of delivery (5) NST (non-stress test) reactive on surveillance Current visit: No Status: Acute History of Present Illness Chief complaint: SROM HPI: Ms. Williamson is a 22 year old female at 36 weeks 5 days gestation with an estimated date of of 12/01/18 dated by early ultrasound. She presents with c/o leakage of fluid starting about 8 PM this evening. She reports feeling contractions about every minute and a half to 2 minutes and states they last 40 seconds each. She is in no complications during this . She has been followed by Dr. Gates throughout her . records are available electronically and have been reviewed. Labs: O- GBS- HIV- Hep B unknown T. Palladium- GC/CL- Rubella equivocal Varicella nonimmune Past Med Surg Social Fam HX - Past Medical History Medical history: seizures Additional medical history: havent had seizure in 11 yrs Psychiatric history: anxiety, ADHD, bipolar, depression, PTSD, other - Past Surgical History Surgical History: other Additional surgical history: T and A, emergency ear surgery as a child - Social History Smoking Status: Never smoker Smokeless Tobacco Status: No Alcohol use: none Drug use: none - Family History Father Adopted: Yes Family Member Ethnicity: Non- Living Status: Still Living Hx Family Cardiac Disorders: No Hx Family Respiratory Disorders: No Hx Family Cancer: No Hx Family GI Disorders: No Hx Family Endocrine Disorder: No Hx Family Neuromuscular Disorders: No Hx Family Neurologic Disorders: No Hx Family HEENT Disorders: No Hx Family Autoimmune Disorders: No Obstetrical History - Pregnancies : 3 Para: 1 Term: 1 (# 1: normal spontaneous vaginal delivery () Kostas, 05/09/17, 7.08lbs. ) : 0 Ab's: 1 Livin Medications and Allergies Lexapro 15 mg PO DAILY 11/10/17 [History] Vit #108/Iron/FA [ One Tablet] 1 each PO QDPC #30 tablet 05/08/18 [Rx] Lamotrigine 125 mg PO DAILY 08/09/18 [History] Allergy/AdvReac Type Severity Reaction Status Date / Time Amoxicillin Allergy Nausea Verified 11/08/18 20:58 Penicillins Allergy Vomiting Verified 11/08/18 20:58 Review of System OB All systems PM: reviewed and no additional remarkable complaints except as stated Exam - Constitutional Constitutional: well developed, well nourished, mild distress, obese - HEENT HEENT: PERRL - Neck Neck exam: full ROM - Lungs Respiratory exam: CTAB - Cardiovascular Cardiovascular exam: RRR, +S1, +S2 - Breasts Breast: bilateral: normal - Abdomen Abdomen: Present: bowel sounds normal, gravid, non tender - Extremities Extremities exam: full ROM, normal capillary refill, normal inspection, radial pulses palpable and symmetrical - Vulva Vulva: bilateral: normal - Vagina Vagina: Present: normal moisture - Cervix Dilation: 6 Effacement: 80 Station: -1 - Uterus Uterus exam: Present: normal size - Anus/Rectum Anus/Rectum: Present: normal perianal skin Results Abnormal lab results Turbid (Clear) A 11/08/18 20:35 Ur Leukocyte Esterase Trace (Negative) H 11/08/18 20:35 5-15 per hpf (0-3) H 11/08/18 20:35 3-5 per hpf (0-3) H 11/08/18 20:35 Ur Squamous Epith Cells Many per lpf (None-Few) H 11/08/18 20:35 Ur Culture Indicated? YES (NO) A 11/08/18 20:35 All other labs normal. - VTE Reasons for not Prescribing Prophylaxis: Treatment not Indicated - Low risk for VTE
--- NOTE | 2018-11-08 21:42 | Anesthesia Evaluation PreOp ---
Date of Encounter: 11/08/18 Time of Encounter: 21:40 - Past History Planned Operation: sobia Cardiac History: Denies any Significant Hx Pulmonary History: Denies Any Significant HX BREAKFAST SUPERVISOR History: Seizures (11 yr ago) Other Medical History: Other (PTSD, anxiety, depression) Anesthesia History: No Prior Anesthetic Complications, Past Anesthesia (tonsil, bmt) : Yes Test: Positive Alcohol Use: none Drug use: none Medications and Allergies Lexapro 15 mg PO DAILY 11/10/17 [History] Vit #108/Iron/FA [ One Tablet] 1 each PO QDPC #30 tablet 05/08/18 [Rx] Lamotrigine 125 mg PO DAILY 08/09/18 [History] Allergy/AdvReac Type Severity Reaction Status Date / Time Amoxicillin Allergy Nausea Verified 11/08/18 20:58 Penicillins Allergy Vomiting Verified 11/08/18 20:58 - Meds/Allergy Pre-op Review Medications Reviewed: Yes Allergies Reviewed: Yes Beta Blockers on Current Med List: No Anesthesia Exam Height: 5'4" Weight: 83 NPO (# of Hours): 5 Pain Scale: 4 Pain Scale Used: Numeric (1 - 10) - HEENT Pupil (Motor): Pupils equal Mallampati: II Teeth: Normal Oral Opening: Greater than 3 - BREAKFAST SUPERVISOR LOC: Oriented BREAKFAST SUPERVISOR Motor: Normal RUE, Normal LUE, Normal RLE, Normal LLE, Normal Face BREAKFAST SUPERVISOR Sensory: Normal: RUE, LUE, RLE, LLE, Face - Cardiac Rhythm: Regular Murmur: None - Pulmonary Breath Sounds: bilateral Clear Respiratory Effort: Symmetrical Anesthesia Assess/Plan ASA Score: 2 Level of consciousness: Cooperative Anesthetic Plan: Epidural (risks discussed, questions answered, consented) Autologous Blood: No Monitoring Plan: Standard Monitors
[2018-11-08] MEDS ORDERED: *HR* Ropivacaine/PF 0.2% 20 ML VIAL EP ONE (21:44)
[2018-11-08] MEDS ORDERED: *HR* FentaNYL (PF) 100 MCG/2 ML VIAL EP ONE (21:44)
[2018-11-08] MEDS ORDERED: Epidural Premix (fent/bupiv) 110 ML EP SCH (21:45)
[2018-11-08 22:07] LABS: Basophils % 0.2 %; Eosinophils # 0.1 K/mcL (0.0-0.6); Eosinophils % 0.4 %; Hematocrit 28.4 % (35.3-44.9); Hemoglobin 8.9 g/dL (11.5-15.4); Immature Granulocytes % 1.9 % (0-4); Lymphocytes # 1.6 K/mcL (0.6-4.6); Mean Corpuscular HGB Conc 31.3 g/dL (31.6-35.5); Mean Corpuscular Hemoglobin 26.3 pg (28.0-33.3); Mean Platelet Volume 10.4 fL (9.4-12.4); Monocytes # 0.9 K/mcL (0.0-1.3); Neutrophils # 8.7 K/mcL (1.6-8.9); Platelet Count 181 K/mcL (140-400); Red Blood Count 3.38 M/mcL (3.82-4.97); Red Cell Distribution Width 16.1 % (11.5-14.5); Segmented Neutrophils % 75.5 %; White Blood Count 11.5 K/mcL (4.3-11.1)
--- NOTE | 2018-11-08 22:46 | Anesthesia Procedures ---
Date of Encounter: 11/08/18 Time of Encounter: 22:43 Procedures: Anesthesia - Epidural/Spinal Patient ID/Chart reviewed: Yes Patient examined: Yes OB Eval: Gestational age: 37 OB Eval: : 3 OB Eval: Hx Para: 1 OB Eval: Dilated at (cm): 6 OB Eval: Contractions: Non-stressed pattern Consent Obtained: Yes Supplemental Oxygen: None/Room Air Site Prep: Aseptic Technique, Sterile prep and drape Patient position: upright Local Anesthetic: Lidocaine 1% Amount of Local Anesthetic used: 3 Touhy Needle Gauge: 18 Touhy Needle Depth (cm): 8 Catheter Depth at Skin (cm): 15 Test Dose (1.5% Lido + Epi): Volume given (mls): 3 Test Dose Result: Negative Loading Dose: Fentanyl (mcg): 100 Loading Dose: Other: rop 0.2% 7 cc Loading Dose Administered: Thru Touhy Needle Infusion Med: 0.125% Bupivacaine w/ 2 mcg/ml Fentanyl Infusion Rate (mls/hr): 15 (pcea 5cc q30") Catheter Secured in Place: Tegaderm Interspace Used: L2-L3 Loss of Resistance (YURIY): Yes Blood: No CSF: No Paresthesia: No Procedure: aseptic, skyler well, VSS, effective Vitals + FHT's: 107/78 88 16 fht 146
--- NOTE | 2018-11-09 00:34 | OB Labor Progress Note ---
Date of Encounter: 11/09/18 Time of Encounter: 00:31 Labor Progress Note - Subjective Subjective: Pt is comfortable with epidural. - Cervix Cervix: 7/80/-2 - Heart Tones Heart Tones: Baseline 140 Moderate variability Accelerations present 15x15 No decelerations FHR Category I - [place]: Contractions indeterminate - need IUPC - Interventions Interventions: SVE AROM forebag - moderate amount of clear fluid IUPC placed - Plan Physician notified: No Plan: Continue active management Tailor sit and then frequent changes with peanut ball Increase pitocin to adequate contraction pattern Anticipate
--- NOTE | 2018-11-09 03:15 | OB/GYN Procedure Note ---
Delivery - Delivery Date: 11/09/18 Provider: Gisell Swenson Intrapartum events: none Delivery induction: none Delivery augmentation: pitocin Delivery monitor: external FHT, external uterine Anesthesia: epidural Quantitated Blood Loss: 200 - (s) A Infant Delivery Date: 11/09/18 Delivery Time: 02:45 Presentation: vertex Position: SAFIA Route of delivery: Gender: Male Viability: Viable Pounds: 7 Ounces: 0 Weight Gram: 3.165 kg at 1 minute: 8 at 5 mins: 9 Shoulder Dystocia: not encountered Specimens collected: cord blood Placenta: spontaneous Cord: 3 umbilical vessels - Repair Episiotomy: none Laceration Description: Superficial - Complications Delivery complications: none Delivery comments: This is a 22 year old G3 now P1112 who was admitted for rupture of membranes. She progressed with Pitocin augmentation to the second stage of labor. She pushed for about 10 minutes. She delivered a viable, male , "Sanna", SAFIA, over an intact perineum. A nuchal cord was not identified. A shoulder dystocia was not encountered. The was placed on the maternal abdomen and allowed to transition spontaneously. The cord was double clamped by inspector packager after pulsations ceased and cut by the patient's mother. scores were 8 at 1 minute and 9 at 5 minutes. The weighed 7 lbs. 0 oz. (3165g). The placented delivered spontaneously, intact (Vega) with a 3-vessel cord. Inspection revealed a superficial perineal laceration that was hemostatic. The uterus was firm with no active bleeding. EBL was 200mL. Placenta and umbilical artery blood gases were not sent. There were no complications during the procedure. Mom and baby are skin to skin following delivery. - Disposition Mom disposition: stable in LDR [place] disposition: stable in LDR
[2018-11-09] MEDS ORDERED: Rho Immune Globulin 1,500 UNIT SYRINGE IM PRN (03:58)
[2018-11-09] MEDS ORDERED: Oxytocin 20 units/ LR 1000 mL 20 UNIT/1,000 ML BAG IVC SCH (03:58)
[2018-11-09] MEDS ORDERED: Measles/Mumps/Rubella Vacc 0.5 ML VIAL SQ PRN (03:58)
[2018-11-09] MEDS ORDERED: Benzocaine/Menthol 56 GM AEROSOL SPRAY TP PRN (03:58)
[2018-11-09] MEDS: Acetaminophen 325 MG TABLET PO PRN ×2 (04:39→18:17)
[2018-11-09] MEDS: Prenatal Vit/FA 1 EACH TABLET PO SCH (07:40)
[2018-11-09] MEDS: Ibuprofen 600 MG TABLET PO PRN ×3 (07:45→20:48)
[2018-11-09] MEDS: lamoTRIgine 100 MG TABLET PO SCH ×2 (11:30→20:48)
[2018-11-09] MEDS ORDERED: lamoTRIgine 25 MG TABLET PO SCH (21:00)
[2018-11-09] MEDS ORDERED: lamoTRIgine 100 MG TABLET PO SCH (21:00)
[2018-11-10] MEDS: Acetaminophen 325 MG TABLET PO PRN ×2 (01:46→09:52)
[2018-11-10] MEDS: Ibuprofen 600 MG TABLET PO PRN ×3 (04:38→20:44)
[2018-11-10] MEDS: Prenatal Vit/FA 1 EACH TABLET PO SCH (08:49)
[2018-11-10] MEDS: lamoTRIgine 100 MG TABLET PO SCH ×2 (08:49→20:43)
--- NOTE | 2018-11-10 08:55 | OB/GYN Progress Note ---
Date of Encounter: 11/10/18 Time of Encounter: 08:52 - Assessment and Plan (1) Vaginal delivery Current Visit: Yes Status: Acute Pt meeting PPD1 milestones. She reports feeling dizzy upon standing. Initial hgb 8.9. Will repeat H&H this am. (2) Anemia affecting in third trimester Current Visit: No Status: Acute (3) Blood type O- Current Visit: No Status: Acute Baby is Rh positive. Rhogam today. Subjective - Subjective Interval history: Pt reports feeling well this am. She does c/o dizziness upon standing. No other complaints. Patient reports: appetite normal, voiding normally, pain well controlled, ambu lating normally : doing well, bottle feeding Objective - Latest Vital Signs Latest vital signs: Vital Signs Temp Pulse Resp BP Pulse Ox 11/09/18 19:55 97.8 F 67 16 109/57 98 11/09/18 17:30 98.8 F 66 16 106/66 11/09/18 15:49 97.6 F 63 16 113/68 Intake and Output 11/09/18 11/10/18 11/10/18 23:59 07:59 15:59 Intake Total 500 / 1300 Output Total 900 / 3200 400 / 400 Balance -400 / -1900 -400 / -400 Intake: Oral 500 / 1300 Output: Urine 900 / 3200 400 / 400 Other: Weight 78.789 kg Patient Weight 11/10/18 23:59 Weight 78.789 kg - Exam Lungs: bilateral: normal Chest: Normal S1, Normal S2 Extremities: Present: normal Abdomen: Present: soft Uterus: Present: firm Uterus Position: 2 Fingers Below Umbilicus - Labs Labs: Laboratory Results - last 24 hr 11/09/18 03:15 Screen NEGATIVE Baby's Blood Type A RH POSITIVE Mother's Blood Type O RH NEGATIVE Rhogam Indicated YES Rhogam Req for Mother 1
[2018-11-10] MEDS ORDERED: Lidocaine -MPF 1% 5 ML AMPUL ID ONE (09:12)
[2018-11-10] MEDS ORDERED: Etonogestrel 68 MG IMPLANT IL ONE (09:12)
[2018-11-10 09:44] LABS: Hematocrit 33.4 % (35.3-44.9); Hemoglobin 10.3 g/dL (11.5-15.4)
--- NOTE | 2018-11-10 11:16 | OB/GYN Procedure Note ---
OB-EMPLOYEE BENEFITS SPECIALIST: Procedure - Diagnosis Date of procedure: 11/10/18 Pre-op diagnosis: contraceptive education Post-op diagnosis: other (Nexplanon in place) - Procedure Procedure: Nexplanon insertion Surgeon: Patricia Erazo Was there an machine operator assistant present: No Anesthesia Type: Local Estimated blood loss (cc): 1 Procedure Complications: none Specimens collected: none Disposition: no change Narrative: Informed consent obtained after discussion of risks and benefits. Pt placed in supine position with left arm abducted. Inner aspect of upper arm cleaned with betadine solution. 1% lidocaine was then infiltrated intradermally for the yoel th of the implant. The implant was then inserted to the full length and was deployed. Implant palpated by myself and pt. 4x4 gauze and coban used for pressure dressing. Pt tolerated well. Care instructions and warning signs reviewed with pt. Lot [id number] Exp [id number]
[2018-11-11] MEDS: Prenatal Vit/FA 1 EACH TABLET PO SCH (07:51)
[2018-11-11] MEDS: Ibuprofen 600 MG TABLET PO PRN (07:51)
[2018-11-11] MEDS: lamoTRIgine 100 MG TABLET PO SCH (07:51)
[2018-11-11 08:29] VITALS: BP 114/78
[2018-11-11] MEDS: Acetaminophen 325 MG TABLET PO PRN (09:19)
--- NOTE | 2018-11-11 10:10 | Discharge Summary ---
Date of Encounter: 11/11/18 Time of Encounter: 10:07 - Discharge Diagnosis (1) Vaginal delivery Priority: Primary Status: Acute Comments: Stable, meeting all PP milestones, pain well managed on po pain medication ,bottle feeding, desires discharge - Discharge Medications Prescriptions: New Ferrous Sulfate 325 mg PO DAILY #30 tablet Acetaminophen [Tylenol] 650 mg PO Q6HR PRN tablet PRN Reason: Mild Pain Escitalopram [Lexapro] 5 mg PO HS tablet Escitalopram [Lexapro] 10 mg PO HS tablet Ibuprofen [Motrin] 600 mg PO Q6HR PRN #60 tablet PRN Reason: Cramping lamoTRIgine [Lamictal] 100 mg PO BID tablet Benzocaine/Menthol [place] [Dermoplast Bend] 1 appl TP QID PRN aerosol PRN Reason: See Comments Docusate [Colace] 100 mg PO BID #30 capsule Continued Lexapro 15 mg PO DAILY Vit #108/Iron/FA [ One Tablet] 1 each PO QDPC #30 tablet Lamotrigine 125 mg PO DAILY Home Medications: Lexapro 15 mg PO DAILY 11/10/17 [History] Vit #108/Iron/FA [ One Tablet] 1 each PO QDPC #30 tablet 05/08/18 [Rx] Lamotrigine 125 mg PO DAILY 08/09/18 [History] Acetaminophen [Tylenol] 650 mg PO Q6HR PRN tablet 11/11/18 [Rx] Benzocaine/Menthol [place] [Dermoplast [place]] 1 appl TP QID PRN aerosol 11/11/18 [Rx] Docusate [Colace] 100 mg PO BID #30 capsule 11/11/18 [Rx] Escitalopram [Lexapro] 5 mg PO HS tablet 11/11/18 [Rx] Escitalopram [Lexapro] 10 mg PO HS tablet 11/11/18 [Rx] Ferrous Sulfate 325 mg PO DAILY #30 tablet 11/11/18 [Rx] Ibuprofen [Motrin] 600 mg PO Q6HR PRN #60 tablet 11/11/18 [Rx] lamoTRIgine [Lamictal] 100 mg PO BID tablet 11/11/18 [Rx] Allergies/Adverse Reactions: Allergy/AdvReac Type Severity Reaction Status Date / Time Amoxicillin Allergy Nausea Verified 11/08/18 20:58 Penicillins Allergy Vomiting Verified 11/08/18 20:58 Data Procedures and tests throughout hospitalization: Laboratory Tests 11/08/18 11/08/18 11/08/18 20:35 20:35 21:10 WBC 11.5 H RBC 3.38 L Hgb 8.9 L Hct 28.4 L MCV 84.0 MCH 26.3 L MCHC 31.3 L RDW 16.1 H Plt Count 181 MPV 10.4 Immature Gran % 1.9 Seg Neutrophils % 75.5 Lymphocytes % 14.0 Monocytes % 8.0 Eosinophils % 0.4 Basophils % 0.2 Neutrophils # 8.7 Lymphocytes # 1.6 Monocytes # 0.9 Eosinophils # 0.1 Basophils # 0.0 Urine Color Yellow Urine Clarity Turbid A Urine pH 8.0 Ur Specific [place] 1.011 Urine Protein Negative Urine Glucose (UA) Normal Urine Ketones Negative Urine Blood Negative Urine Nitrite Negative Urine Bilirubin Negative Urine Urobilinogen Normal Ur Leukocyte Esterase Trace H Urine Microscopic RBC 5-15 H Urine Microscopic WBC 3-5 H Ur Squamous Epith Cells Many H Urine Bacteria None Seen Hyaline Casts None Seen Ur Culture Indicated? YES A Urine Opiates Screen Negative Ur Barbiturates Screen Negative Ur Phencyclidine Scrn Negative Ur Amphetamines Screen Negative U Benzodiazepines Scrn Negative Urine Cocaine Screen Negative U Marijuana (THC) Screen Negative Ur Drug Screen Interp See Below Hep Bs Antigen Screen Baby's Blood Type Mother's Blood Type Rhogam Indicated Rhogam Req for Mother 11/08/18 11/09/18 11/10/18 21:44 03:15 09:27 WBC RBC Hgb 10.3 L Hct 33.4 L MCV MCH MCHC RDW Plt Count MPV Immature Gran % Seg Neutrophils % Lymphocytes % Monocytes % Eosinophils % Basophils % Neutrophils # Lymphocytes # Monocytes # Eosinophils # Basophils # Urine Color Urine Clarity Urine pH Ur Specific [place] Urine Protein Urine Glucose (UA) Urine Ketones Urine Blood Urine Nitrite Urine Bilirubin Urine Urobilinogen Ur Leukocyte Esterase Urine Microscopic RBC Urine Microscopic WBC Ur Squamous Epith Cells Urine Bacteria Hyaline Casts Ur Culture Indicated? Urine Opiates Screen Ur Barbiturates Screen Ur Phencyclidine Scrn Ur Amphetamines Screen U Benzodiazepines Scrn Urine Cocaine Screen U Marijuana (THC) Screen Ur Drug Screen Interp Hep Bs Antigen Nonreactive Screen NEGATIVE Baby's Blood Type A RH POSITIVE Mother's Blood Type O RH NEGATIVE Rhogam Indicated YES Rhogam Req for Mother 1 Date of admission: 11/08/18 22:50 Primary care physician: PCP KENNEDY Consults: 11/09/18 03:58 Consult to Precipitation Equipment Tender [CONS] Routine Comment: Vaginal delivery, consult needed Consult to Knifeman [CONS] Routine Reason for SW Consult: Undetermined paternity; unstable social situation Discharging clinician: Aure To Anticipated date of discharge: 11/11/18 - Patient Status Disposition: Home, Self-Care Condition: Good Overall status at discharge: patient is progressing back to baseline - Discharge Instructions Follow Up With: NONE,PCP [Primary Care Provider] - Gisell Gates MD [Partnered Physician] - - Diet and Activity Activity: resume usual activities as tolerated Diet: regular diet Hospital Course Reason for admission: IUP - , rupture of membranes Delivery: Episiotomy: none Laceration: other Other procedures: none complications: none Discharge diagnosis: delivery baby: male Hospital course: elivery - Delivery Date: 11/09/18 Provider: Gisell Swenson Intrapartum events: none Delivery induction: none Delivery augmentation: pitocin Delivery monitor: external FHT, external uterine Anesthesia: epidural Quantitated Blood Loss: 200 - Infant (s) Infant A Delivery Date: 11/09/18 Delivery Time: 02:45 Presentation: vertex Position: SAFIA Route of delivery: Gender: Male Viability: Viable Pounds: 7 Ounces: 0 Weight Gram: 3.165 kg at 1 minute: 8 at 5 mins: 9 Shoulder Dystocia: not encountered Specimens collected: cord blood Placenta: spontaneous Cord: 3 umbilical vessels - Repair Episiotomy: none Laceration Description: Superficial - Complications Delivery complications: none Delivery comments: This is a 22 year old G3 now P1112 who was admitted for rupture of membranes. She progressed with Pitocin augmentation to the second stage of labor. She pushed for about 10 minutes. She delivered a viable, male , "Sanna", SAFIA, over an intact perineum. A nuchal cord was not identified. A shoulder dystocia was not encountered. The was placed on the maternal abdomen and allowed to transition spontaneously. The cord was double clamped by machine icer after pulsations ceased and cut by the patient's mother. scores were 8 at 1 minute and 9 at 5 minutes. The weighed 7 lbs. 0 oz. (3165g). The placented delivered spontaneously, intact (Vega) with a 3-vessel cord. Inspection revealed a superficial perineal laceration that was hemostatic. The uterus was firm with no active bleeding. EBL was 200mL. Placenta and umbilical artery blood gases were not sent. There were no complications during the procedure. Mom and baby are skin to skin following delivery. - Disposition Mom disposition: stable in PP and appropriate for discharge Time Attestation: Total time spent providing and/or coordinating discharge services: Time Spent: Less than 30 minutes Exam - Constitutional Vitals: Temp Pulse Resp BP Pulse Ox 97.7 F 59 14 114/78 98 11/11/18 08:28 11/11/18 08:28 11/11/18 08:28 11/11/18 08:28 11/11/18 08:28 General appearance IM: A&O X 3 - Respiratory Respiratory exam: Present: CTAB - Cardiovascular Cardiovascular exam IM: Present: RRR - GI/Abdominal GI/Abdominal exam IM: soft - Uterine Tone: Firm Uterus Position: At Umbilicus - Extremities Exam Extremities exam IM: Present: normal capillary refill - Neurological Exam Neurological exam: normal gait, oriented X3 - Psychiatric Additional comments: reports good mood
== END 2018-11-11 15:30 | disposition home or self-care (01) | DRG 560 ==
LOC: 1NENULAB → 1NENUOBS 11-09 05:36
PROVIDERS: ADMIT Advanced Practice Midwife; ATTEND Advanced Practice Midwife

== ENCOUNTER 2018-12-25 20:39 | Inpatient (IN) ==
--- NOTE | 2018-12-25 21:07 | Emergency Department Note ---
Disposition Clinical Impression: Suicidal ideation, PTSD (post-traumatic stress disorder) Disposition: Admitted As Inpatient Condition: Fair Forms: ED Satisfaction Letter Time of Disposition: 00:59 Psych HPI - General Chief Complaint: ED Psychiatric Symptoms Stated Complaint: psych Time Seen by Provider: 12/25/18 20:59 Source: patient Mode of arrival: private vehicle Limitations: no limitations Nursing Notes Reviewed: Yes Vital Signs Reviewed: Yes - History of Present Illness HPI Narrative: Patient states she is having a flare of her PTSD. She is seeing visions of blood and bodies. This is been occurring with increasing frequency over the past several days and now she Has thoughts of self-harm. She gets mental health care with integrated services Pt complaint: suicidal ideation, feels depressed, anxiety Onset (ago): day(s) Duration: intermittent History of similar episodes: Yes Improves with: none Worsens with: none Alleged intoxication: No Associated Psychiatric Symptoms: depression, anxiety Traumatic symptoms: denies traumatic injury Self harm or harm to others: admits thoughts of self harm - Related Data Home Medications Medication Instructions Recorded Confirmed Escitalopram [Lexapro] 20 mg PO HS 12/25/18 12/25/18 Allergies Allergy/AdvReac Type Severity Reaction Status Date / Time Amoxicillin Allergy Nausea Verified 11/08/18 20:58 Penicillins Allergy Vomiting Verified 11/08/18 20:58 All systems ED: reviewed and negative except as stated. Constitutional: Reports: as per HPI Eyes: Reports: as per HPI ENT ED: Reports: as per HPI Cardiovascular: Reports: as per HPI Respiratory: Reports: as per HPI Gastrointestinal: Reports: as per HPI Genitourinary: Reports: as per HPI Musculoskeletal: Reports: as per HPI Integumentary: Reports: as per HPI Neurological: Reports: as per HPI Psychiatric: Reports: anxiety, depression, suicidal thoughts Endocrine: Reports: as per HPI Hematological/Lymphatic: Reports: as per HPI Allergic/Immunologic: Reports: as per HPI Past Medical History - Past Medical History Source: patient Medical history: Reports: seizures Surgical history: Reports: other Psychiatric history: Reports: anxiety, ADHD, bipolar, depression, PTSD, other FRY COOK history: Reports: spontaneous - Social History Smoking Status: Never smoker Smokeless Tobacco Status: No Alcohol use: Reports: none Drug use: Reports: none Physical Exam Tearful - General Limitations: no limitations General appearance: alert, anxious - Head Head exam: atraumatic - Eye Eye exam: Present: normal appearance - Neck Neck exam: Present: normal inspection, full ROM - Chest Chest inspection: Present: normal inspection, symmetric chest wall rise - Respiratory Respiratory exam: Present: normal lung sounds bilaterally - Cardiovascular Cardiovascular exam: Present: regular rate, normal rhythm - Rectal Exam Rectal exam: Present: deferred - Extremities Exam Extremities exam: Present: normal inspection - Neurological Exam Neurological exam: Present: alert, oriented X3, CN II-XII intact - Psychiatric Psychiatric exam: Present: depressed, anxious - Skin Skin exam: Present: warm, dry, intact Course Course Narrative: Patient presents feeling anxious, depressed, and having suicidal thoughts. She has a history of PTSD. I will attempt to clear her medically for mental health evaluation Vital Signs Temperature 98.2 F 12/25/18 20:46 Pulse Rate 84 12/25/18 20:46 Respiratory Rate 18 12/25/18 20:46 Blood Pressure 108/62 12/25/18 20:46 O2 Sat by Pulse Oximetry 97 12/25/18 20:46 Temperature 98.2 F 12/25/18 20:46 Pulse Rate 84 12/25/18 20:46 Respiratory Rate 18 12/25/18 20:46 Blood Pressure 108/62 12/25/18 20:46 O2 Sat by Pulse Oximetry 97 12/25/18 20:46 Oxygen Delivery Oxygen Delivery Room Air Psych - Medical Records Medical records reviewed: Yes I reviewed the patient's medical records. - Lab Data Lab results reviewed: Yes I reviewed the patient's lab results. Result diagrams: 12/25/18 21:21 12/25/18 21:21 Lab Results 12/25/18 12/25/18 12/25/18 Range/Units 21:03 21:21 21:21 WBC 7.3 (4.3-11.1) K/mcL RBC 4.67 (3.82-4.97) M/mcL Hgb 12.2 (11.5-15.4) g/dL Hct 38.6 (35.3-44.9) % MCV 82.7 L (83.0-100.0) fL MCH 26.1 L (28.0-33.3) pg MCHC 31.6 (31.6-35.5) g/dL RDW 17.2 H (11.5-14.5) % Plt Count 228 (140-400) K/mcL MPV 10.6 (9.4-12.4) fL Immature Gran % 0.4 (0-4) % Seg Neutrophils % 61.6 % Lymphocytes % 30.5 % Monocytes % 5.7 % Eosinophils % 1.4 % Basophils % 0.4 % Neutrophils # 4.5 (1.6-8.9) K/mcL Lymphocytes # 2.2 (0.6-4.6) K/mcL Monocytes # 0.4 (0.0-1.3) K/mcL Eosinophils # 0.1 (0.0-0.6) K/mcL Basophils # 0.0 (0.0-0.2) K/mcL Sodium (136-145) mEq/L Potassium (3.5-5.1) mEq/L Chloride (98-107) mEq/L Carbon Dioxide (23-29) mEq/L BUN (6-20) mg/dL Creatinine (0.60-1.20) mg/dL Est GFR ( Amer) (> 60) Est GFR (Non-Af Amer) (> 60) BUN/Creatinine Ratio (6-26) Glucose (70-105) mg/dL Calculated Osmolality (280-300) Calcium (8.6-10.3) mg/dL Total Bilirubin (0.3-1.0) mg/dL Direct Bilirubin (0.0-0.2) mg/dL Indirect Bilirubin (0.0-1.2) mg/dL AST (13-39) Units/L ALT (7-52) Units/L Alkaline Phosphatase (34-104) Units/L Serum Total Protein (6.4-8.9) g/dL Albumin (3.5-5.7) g/dL Globulin (2.4-3.5) g/dL Albumin/Globulin Ratio (1.1-2.2) Urine Test Negative (Negative) Salicylates (15.0-30.0) mg/dL Urine Opiates Screen Negative (Ssauok=305) ng/mL Ur Buprenorphine Scrn Negative (Cutoff=5) ng/mL Acetaminophen (10-20) mcg/mL Ur Barbiturates Screen Negative (Kxmjmc=737) ng/mL Ur Phencyclidine Scrn Negative (Cutoff=25) ng/mL Ur Amphetamines Screen Negative (Loqxur=8341) ng/mL U Benzodiazepines Scrn Negative (Mptawm=605) ng/mL Urine Cocaine Screen Negative (Cutoff= 300) ng/mL U Marijuana (THC) Screen Negative (Cutoff = 50) ng/mL Ur Drug Screen Interp See Below Ethyl Alcohol (Less than 10) mg/dL 12/25/18 Range/Units 21:21 WBC (4.3-11.1) K/mcL RBC (3.82-4.97) M/mcL Hgb (11.5-15.4) g/dL Hct (35.3-44.9) % MCV (83.0-100.0) fL MCH (28.0-33.3) pg MCHC (31.6-35.5) g/dL RDW (11.5-14.5) % Plt Count (140-400) K/mcL MPV (9.4-12.4) fL Immature Gran % (0-4) % Seg Neutrophils % % Lymphocytes % % Monocytes % % Eosinophils % % Basophils % % Neutrophils # (1.6-8.9) K/mcL Lymphocytes # (0.6-4.6) K/mcL Monocytes # (0.0-1.3) K/mcL Eosinophils # (0.0-0.6) K/mcL Basophils # (0.0-0.2) K/mcL Sodium 139 (136-145) mEq/L Potassium 4.1 (3.5-5.1) mEq/L Chloride 106 (98-107) mEq/L Carbon Dioxide 23 (23-29) mEq/L BUN 14 (6-20) mg/dL Creatinine 0.66 (0.60-1.20) mg/dL Est GFR ( Amer) > 60 (> 60) Est GFR (Non-Af Amer) > 60 (> 60) BUN/Creatinine Ratio 21 (6-26) Glucose 89 (70-105) mg/dL Calculated Osmolality 288 (280-300) Calcium 9.6 (8.6-10.3) mg/dL Total Bilirubin 0.2 L (0.3-1.0) mg/dL Direct Bilirubin 0.1 (0.0-0.2) mg/dL Indirect Bilirubin 0.1 (0.0-1.2) mg/dL AST 21 (13-39) Units/L ALT 20 (7-52) Units/L Alkaline Phosphatase 61 (34-104) Units/L Serum Total Protein 7.0 (6.4-8.9) g/dL Albumin 4.6 (3.5-5.7) g/dL Globulin 2.4 (2.4-3.5) g/dL Albumin/Globulin Ratio 1.9 (1.1-2.2) Urine Test (Negative) Salicylates < 2.5 L (15.0-30.0) mg/dL Urine Opiates Screen (Xfpquy=349) ng/mL Ur Buprenorphine Scrn (Cutoff=5) ng/mL Acetaminophen < 10 L (10-20) mcg/mL Ur Barbiturates Screen (Apshrw=051) ng/mL Ur Phencyclidine Scrn (Cutoff=25) ng/mL Ur Amphetamines Screen (Xjyibi=5424) ng/mL U Benzodiazepines Scrn (Pybbip=933) ng/mL Urine Cocaine Screen (Cutoff= 300) ng/mL U Marijuana (THC) Screen (Cutoff = 50) ng/mL Ur Drug Screen Interp Ethyl Alcohol < 10 (Less than 10) mg/dL Psychiatric Medical Clearance - Medical Clearance Checklist Medical History: No Social History Section defined Current Vitals: Last Vital Signs Temp 98.2 F 12/25/18 20:46 Pulse 84 12/25/18 20:46 Resp 18 12/25/18 20:46 BP 108/62 12/25/18 20:46 Pulse Ox 97 12/25/18 20:46 Psychiatric Lab Panel: Drug Levels and Toxicity 12/25/18 12/25/18 21:03 21:21 Urine Opiates Screen Negative Acetaminophen < 10 L Ur Barbiturates Screen Negative Ur Phencyclidine Scrn Negative Ur Amphetamines Screen Negative U Benzodiazepines Scrn Negative Urine Cocaine Screen Negative U Marijuana (THC) Screen Negative Ethyl Alcohol < 10 Abnormal Labs: Abnormal lab results MCV 82.7 fL (83.0-100.0) L 12/25/18 21:21 MCH 26.1 pg (28.0-33.3) L 12/25/18 21:21 RDW 17.2 % (11.5-14.5) H 12/25/18 21:21 Total Bilirubin 0.2 mg/dL (0.3-1.0) L 12/25/18 21:21 Salicylates < 2.5 mg/dL (15.0-30.0) L 12/25/18 21:21 Acetaminophen < 10 mcg/mL (10-20) L 12/25/18 21:21 Statement of Medical Clearance: I have evaluated the patient, reviewed diagnostic information, and certify that the patient's medical condition is sufficiently stable that transfer to the psychiatric unit does not pose a significant risk of deterioration.
[2018-12-25] MEDS ORDERED: ALPRAZolam 0.5 MG TABLET PO ONE (21:10)
[2018-12-25 21:33] LABS: Basophils % 0.4 %; Eosinophils # 0.1 K/mcL (0.0-0.6); Eosinophils % 1.4 %; Hematocrit 38.6 % (35.3-44.9); Hemoglobin 12.2 g/dL (11.5-15.4); Immature Granulocytes % 0.4 % (0-4); Lymphocytes # 2.2 K/mcL (0.6-4.6); Lymphocytes % 30.5 %; Mean Corpuscular HGB Conc 31.6 g/dL (31.6-35.5); Mean Corpuscular Hemoglobin 26.1 pg (28.0-33.3); Mean Corpuscular Volume 82.7 fL (83.0-100.0); Mean Platelet Volume 10.6 fL (9.4-12.4); Monocytes # 0.4 K/mcL (0.0-1.3); Monocytes % 5.7 %; Neutrophils # 4.5 K/mcL (1.6-8.9); Platelet Count 228 K/mcL (140-400); Red Blood Count 4.67 M/mcL (3.82-4.97); Red Cell Distribution Width 17.2 % (11.5-14.5); Segmented Neutrophils % 61.6 %; White Blood Count 7.3 K/mcL (4.3-11.1)
[2018-12-25 21:55] LABS: Acetaminophen < 10 mcg/mL (10-20); Alanine Aminotransferase 20 Units/L (7-52); Albumin 4.6 g/dL (3.5-5.7); Albumin/Globulin Ratio 1.9 (1.1-2.2); Alkaline Phosphatase 61 Units/L (34-104); Aspartate Amino Transferase 21 Units/L (13-39); BUN/Creatinine Ratio 21 (6-26); Bilirubin,Direct 0.1 mg/dL (0.0-0.2); Bilirubin,Indirect 0.1 mg/dL (0.0-1.2); Bilirubin,Total 0.2 mg/dL (0.3-1.0); Blood Urea Nitrogen 14 mg/dL (6-20); Calcium 9.6 mg/dL (8.6-10.3); Carbon Dioxide 23 mEq/L (23-29); Chloride 106 mEq/L (98-107); Ethanol < 10 mg/dL (Less than 10); Globulin 2.4 g/dL (2.4-3.5); Glucose 89 mg/dL (70-105); Osmolality,Calculated 288 (280-300); Potassium 4.1 mEq/L (3.5-5.1); Salicylate < 2.5 mg/dL (15.0-30.0); Sodium 139 mEq/L (136-145); eGFR For African Americans > 60 (> 60); eGFR For Non-African Americans > 60 (> 60)
[2018-12-25 22:41] LABS: Amphetamine Screen,Urine Negative ng/mL (Cutoff=1000); Barbiturate Screen,Urine Negative ng/mL (Cutoff=200); Benzodiazepines Screen,Urine Negative ng/mL (Cutoff=200); Cannabinoid Screen,Urine Negative ng/mL (Cutoff = 50); Cocaine Screen,Urine Negative ng/mL (Cutoff= 300); Opiate Screen,Urine Negative ng/mL (Cutoff=300); Phencyclidine Screen,Urine Negative ng/mL (Cutoff=25)
[2018-12-26] MEDS ORDERED: Acetaminophen 325 MG TABLET PO PRN (01:48)
[2018-12-26] MEDS ORDERED: *HR* LORazepam 2 MG/ML VIAL IM PRN (01:48)
[2018-12-26] MEDS ORDERED: Haloperidol Lactate 5 MG/ML VIAL IM PRN (01:48)
[2018-12-26] MEDS ORDERED: MOM Conc 10 ML UD.LIQ PO PRN (01:48)
[2018-12-26] MEDS ORDERED: *HR* LORazepam 1 MG TABLET PO PRN (01:48)
[2018-12-26] MEDS: hydrOXYzine pamoate 25 MG CAPSULE PO PRN ×2 (12:41→20:20)
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
[2018-12-26] MEDS: Mag Hydrox/Al Hydrox/Simeth 30 ML UDC PO PRN (19:51)
[2018-12-26] MEDS: lamoTRIgine 100 MG TABLET PO SCH (21:01)
[2018-12-26] MEDS: ARIPiprazole 5 MG TABLET PO SCH (21:01)
[2018-12-26] MEDS: traZODone 50 MG TABLET PO PRN (22:29)
[2018-12-27] MEDS: lamoTRIgine 100 MG TABLET PO SCH ×2 (09:41→20:30)
[2018-12-27] MEDS: hydrOXYzine pamoate 25 MG CAPSULE PO PRN ×2 (13:33→20:31)
--- NOTE | 2018-12-27 14:29 | Psychiatry Progress Note ---
Date of Encounter: 12/27/18 Time of Encounter: 10:10 Subjective Interval history: Client seen at bedside. She was awoken for the interview. She states "still experiencing same symptoms since arriving here". She does not endorse Suicidal ideation/plan/intent. She does still endorse visual hallucinations of "blood everywhere and decapitated bodies". She reports feeling anxious. No reaction to internal stimuli noted, nor thought blocking. Affect is not congruent with mood. Blunted affect. Review of Systems Constitutional: Denies: chills, weight change, night sweats Eyes: Denies: vision change Ears, Nose, Throat: Denies: congestion Cardiovascular: Denies: chest pain, palpitations Respiratory: Denies: cough Gastrointestinal: Denies: abdominal pain, nausea Genitourinary female: Denies: urgency, dysuria, frequency Musculoskeletal: Denies: myalgia Neurological: Denies: headache, weakness, confusion Psychiatric: Reports: depression, anxiety, visual hallucinations, hopelessness. Denies: abnormal sleep pattern, suicidal ideation, homicidal ideation, mood swings Endocrine: Denies: fatigue Results - Vital Signs Vital Signs: Temp Pulse Resp BP Pulse Ox 98.2 F 88 17 131/82 98 12/27/18 09:00 12/27/18 09:00 12/27/18 09:00 12/27/18 09:00 12/27/18 09:00 Assessment and Plan (1) Post-traumatic stress disorder, unspecified Current visit: Yes Status: Acute Plan: Continue hospitalization, Suicide Precautions per unit protocol, Encourage participation in unit milieu, Group Therapy Risks, benefits, side effects, alternatives discussed w/pt: Yes Patient agreeable to treatment: Yes Consult Discharge Plan - Plan Referrals: NONE,PCP [Primary Care Provider] - - Attending Attestation I examined this patient and my medical decision-making was reviewed with the Resident Physician. I agree with the documented findings, disposition and treatment plan as described except to the extent set forth below. Client continues to endorse significant anxiety. States SI accompanies anxiety. Took one dose of low dose Vistaril with limited benefit. Discussed increasing dose of prn Vistaril today and client agreeable. Already takes Lamictal, Abilify, and Lexapro. Psychiatry Exam - Constitutional Vitals: Temp Pulse Resp BP Pulse Ox 98.2 F 88 17 131/82 98 12/27/18 09:00 12/27/18 09:00 12/27/18 09:00 12/27/18 09:00 12/27/18 09:00 General appearance: age & developmentally appropriate, unkempt - Musculoskeletal Gait: normal Station: relaxed Strength & Tone: normal for patient - Psychiatric Patient Orientation: Yes Person, Yes Time, Yes Place, Yes Circumstance Level of alertness: Alert Behavior: cooperative, anxious Psychomotor activity: Normal Eye Contact: Maintains Eye Contact Mood Description: Depressed, Anxious Affect description: blunted, incongruent with mood Speech Volume: Normal Speech pattern: normal rate, normal rhythm, normal tone Language & Vocabulary: consistent with education Thought Process: Intact Thought Content: No Suicidal ideation, No Homicidal ideation, No Overt delusions Perceptual Disturbances: No Reacting to internal stimuli, Yes Visual hallucinations Attention Span Ability: Capable of Focused Attention Memory Description: Grossly Intact Patient Reliability: Questionable Historian Fund of knowledge: Yes abstraction ability Intelligence Estimate: Average Judgment: Limited Insight: Minimal
[2018-12-27] MEDS: ARIPiprazole 5 MG TABLET PO SCH (20:29)
[2018-12-27] MEDS: traZODone 50 MG TABLET PO PRN (20:30)
[2018-12-27] MEDS: Mag Hydrox/Al Hydrox/Simeth 30 ML UDC PO PRN (20:32)
[2018-12-28] MEDS: lamoTRIgine 100 MG TABLET PO SCH (08:35)
[2018-12-28] MEDS: hydrOXYzine pamoate 25 MG CAPSULE PO PRN ×2 (08:35→11:14)
[2018-12-28 09:58] VITALS: BP 99/65
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
== END 2018-12-28 12:30 | disposition home or self-care (01) | DRG 755 ==
LOC: EMEROOARM 20:39 → 1ANU 20:39
PROVIDERS: ADMIT Psychiatry & Neurology Psychiatry; ATTEND Psychiatry & Neurology Psychiatry

== ENCOUNTER 2019-04-09 16:05 | Observation (INO) ==
[2019-04-09] MEDS ORDERED: 0.9 % Sodium Chloride 1,000 ML IVC ONE ×2 (16:43→19:24)
[2019-04-09] MEDS ORDERED: Ondansetron 4 MG/2 ML VIAL IVP ONE (16:52)
[2019-04-09 16:56] LABS: Bilirubin,Urine Negative (Negative); Blood,Urine Negative (Negative); Clarity,Urine Cloudy (Clear); Color,Urine Yellow (Yellow); Glucose,Urine (UA) Normal (Normal); Ketones,Urine Negative (Negative); Leukocyte Esterase,Urine Large (Negative); Nitrite,Urine Negative (Negative); Protein,Urine Negative (Neg-Trace); Urobilinogen,Urine Normal (Normal)
[2019-04-09 16:58] LABS: Bacteria,Urine Moderate per hpf (None-Few); Hyaline Casts,Urine Few per lpf (None-Few); RBC,Urine 0-3 per hpf (0-3); Squamous Epithelial Cell,Urine Many per lpf (None-Few); WBC,Urine 50-100 per hpf (0-3)
[2019-04-09 17:29] LABS: Basophils % 0.6 %; Eosinophils # 0.1 K/mcL (0.0-0.6); Eosinophils % 1.5 %; Hematocrit 38.5 % (35.3-44.9); Hemoglobin 12.8 g/dL (11.5-15.4); Immature Granulocytes % 0.4 % (0-4); Lymphocytes # 1.6 K/mcL (0.6-4.6); Lymphocytes % 30.8 %; Mean Corpuscular HGB Conc 33.2 g/dL (31.6-35.5); Mean Corpuscular Hemoglobin 26.9 pg (28.0-33.3); Mean Corpuscular Volume 81.1 fL (83.0-100.0); Mean Platelet Volume 10.3 fL (9.4-12.4); Monocytes # 0.3 K/mcL (0.0-1.3); Monocytes % 6.2 %; Neutrophils # 3.2 K/mcL (1.6-8.9); Platelet Count 224 K/mcL (140-400); Red Blood Count 4.75 M/mcL (3.82-4.97); Red Cell Distribution Width 14.5 % (11.5-14.5); Segmented Neutrophils % 60.5 %; White Blood Count 5.3 K/mcL (4.3-11.1)
[2019-04-09 17:53] LABS: BUN/Creatinine Ratio 17 (6-26); Blood Urea Nitrogen 10 mg/dL (6-20); Calcium 9.1 mg/dL (8.6-10.3); Carbon Dioxide 22 mEq/L (23-29); Chloride 109 mEq/L (98-107); Glucose 86 mg/dL (70-105); Osmolality,Calculated 284 (280-300); Potassium 3.7 mEq/L (3.5-5.1); Sodium 138 mEq/L (136-145); eGFR For African Americans > 60 (> 60); eGFR For Non-African Americans > 60 (> 60)
[2019-04-09] MEDS ORDERED: cefTRIAXone 1,000 MG in Water for inj. (sterile) 10 ML IVP ONE (18:23)
[2019-04-09] MEDS ORDERED: Acetaminophen 325 MG TABLET PO ONE (18:48)
[2019-04-09 19:58] LABS: Amphetamine Screen,Urine Negative ng/mL (Cutoff=1000); Barbiturate Screen,Urine Negative ng/mL (Cutoff=200); Benzodiazepines Screen,Urine Negative ng/mL (Cutoff=200); Cannabinoid Screen,Urine Negative ng/mL (Cutoff = 50); Cocaine Screen,Urine Negative ng/mL (Cutoff= 300); Opiate Screen,Urine Negative ng/mL (Cutoff=300); Phencyclidine Screen,Urine Negative ng/mL (Cutoff=25)
[2019-04-09] MEDS ORDERED: Ringers Solution, Lactated 1,000 ML IVC SCH (20:30)
[2019-04-09] MEDS: Ketorolac 30 MG/ML VIAL IVP PRN (22:14)
[2019-04-09] MEDS: lamoTRIgine 100 MG TABLET PO SCH (22:14)
[2019-04-09] MEDS: hydrOXYzine pamoate 25 MG CAPSULE PO PRN (22:14)
[2019-04-10] MEDS: Ondansetron 4 MG/2 ML VIAL IVP PRN ×2 (00:31→18:42)
[2019-04-10] MEDS: Ketorolac 30 MG/ML VIAL IVP PRN (05:16)
[2019-04-10] MEDS: lamoTRIgine 100 MG TABLET PO SCH ×2 (08:50→21:23)
[2019-04-10] MEDS ORDERED: Sulfamethoxazole/Trimeth DS 1 EACH TABLET PO SCH (09:00)
[2019-04-10] MEDS: cefTRIAXone 1,000 MG in 0.9 % Sodium Chloride Mini Bag 100 ML IVPB SCH (12:22)
[2019-04-10] MEDS: Acetaminophen 325 MG TABLET PO PRN (12:22)
[2019-04-10] MEDS ORDERED: *HR* LORazepam 2 MG/ML VIAL ONE (13:01)
[2019-04-10] MEDS ORDERED: *HR* LORazepam 2 MG/ML VIAL IVP ONE (13:03)
[2019-04-10] MEDS ORDERED: *HR* LORazepam 2 MG/ML VIAL IVP PRN (13:08)
[2019-04-10] MEDS: hydrOXYzine pamoate 25 MG CAPSULE PO PRN (17:26)
[2019-04-10] MEDS: *HR* Heparin 5,000 UNIT/ML VIAL SQ SCH (17:28)
[2019-04-11] MEDS: Acetaminophen 325 MG TABLET PO PRN ×2 (03:51→22:42)
[2019-04-11] MEDS: Ondansetron 4 MG/2 ML VIAL IVP PRN ×2 (03:51→10:24)
[2019-04-11 04:53] LABS: ABG Base Excess -2 mEq/L (-2 to 3); ABG HCO3 23 mEq/L (21-27); ABG Oxygen Saturation 100 % (95-98); ABG PCO2 35 mmHg (35-45); ABG PH 7.41 pH Units (7.32-7.45); ABG PO2 159 mmHg (85-104); ABG TCO2 24 mEq/L (20-26)
[2019-04-11 05:46] LABS: Basophils % 0.5 %; Eosinophils # 0.1 K/mcL (0.0-0.6); Eosinophils % 2.7 %; Hemoglobin 12.2 g/dL (11.5-15.4); Immature Granulocytes % 0.2 % (0-4); Lymphocytes # 1.5 K/mcL (0.6-4.6); Lymphocytes % 37.4 %; Mean Corpuscular HGB Conc 32.1 g/dL (31.6-35.5); Mean Corpuscular Volume 80.9 fL (83.0-100.0); Mean Platelet Volume 10.7 fL (9.4-12.4); Monocytes # 0.3 K/mcL (0.0-1.3); Monocytes % 7.2 %; Neutrophils # 2.1 K/mcL (1.6-8.9); Platelet Count 195 K/mcL (140-400); Red Cell Distribution Width 14.6 % (11.5-14.5)
[2019-04-11 06:04] LABS: BUN/Creatinine Ratio 15 (6-26); Blood Urea Nitrogen 11 mg/dL (6-20); Calcium 9.4 mg/dL (8.6-10.3); Carbon Dioxide 21 mEq/L (23-29); Chloride 107 mEq/L (98-107); Glucose 98 mg/dL (70-105); Osmolality,Calculated 285 (280-300); Potassium 3.7 mEq/L (3.5-5.1); Sodium 138 mEq/L (136-145); eGFR For African Americans > 60 (> 60); eGFR For Non-African Americans > 60 (> 60)
[2019-04-11] MEDS: *HR* Heparin 5,000 UNIT/ML VIAL SQ SCH ×2 (06:12→19:20)
[2019-04-11] MEDS: lamoTRIgine 100 MG TABLET PO SCH ×2 (09:37→22:43)
[2019-04-11] MEDS: cefTRIAXone 1,000 MG in 0.9 % Sodium Chloride Mini Bag 100 ML IVPB SCH (10:24)
[2019-04-11 11:30] LABS: Hematocrit 37.5 % (35.3-44.9); Hemoglobin 12.4 g/dL (11.5-15.4)
[2019-04-12] MEDS: *HR* Heparin 5,000 UNIT/ML VIAL SQ SCH (05:24)
[2019-04-12 07:06] LABS: Basophils % 0.3 %; Eosinophils # 0.1 K/mcL (0.0-0.6); Eosinophils % 3.3 %; Hematocrit 36.5 % (35.3-44.9); Hemoglobin 11.9 g/dL (11.5-15.4); Immature Granulocytes % 0.3 % (0-4); Lymphocytes # 1.3 K/mcL (0.6-4.6); Lymphocytes % 36.2 %; Mean Corpuscular HGB Conc 32.6 g/dL (31.6-35.5); Mean Corpuscular Hemoglobin 26.8 pg (28.0-33.3); Mean Corpuscular Volume 82.2 fL (83.0-100.0); Mean Platelet Volume 10.6 fL (9.4-12.4); Monocytes # 0.2 K/mcL (0.0-1.3); Monocytes % 6.1 %; Platelet Count 178 K/mcL (140-400); Red Blood Count 4.44 M/mcL (3.82-4.97); Red Cell Distribution Width 14.5 % (11.5-14.5); Segmented Neutrophils % 53.8 %; White Blood Count 3.6 K/mcL (4.3-11.1)
[2019-04-12 08:44] VITALS: BP 90/53
[2019-04-12] MEDS: lamoTRIgine 100 MG TABLET PO SCH (08:45)
[2019-04-12] MEDS ORDERED: Sennosides 8.6 MG TABLET PO ONE (10:13)
== END 2019-04-12 14:33 | disposition home or self-care (01) ==
LOC: EMEROOARM 16:05 → 3ANU 16:05 → SUATTDRO 19:56 → 3ANU 20:35
PROVIDERS: ADMIT Internal Medicine; ATTEND Internal Medicine

== ENCOUNTER 2019-05-30 08:38 | Inpatient (IN) ==
[2019-05-30 09:08] LABS: Bilirubin,Urine Negative (Negative); Blood,Urine Negative (Negative); Clarity,Urine Clear (Clear); Color,Urine Yellow (Yellow); Glucose,Urine (UA) Normal (Normal); Ketones,Urine Negative (Negative); Leukocyte Esterase,Urine Trace (Negative); Nitrite,Urine Negative (Negative); PH,Urine 7.5 pH Units (5.0-8.0); Protein,Urine Negative (Neg-Trace); Specific Gravity,Urine 1.021 (1.010-1.025); Urobilinogen,Urine Normal (Normal)
[2019-05-30 09:10] LABS: Bacteria,Urine None Seen per hpf (None-Few); Hyaline Casts,Urine None Seen per lpf (None-Few); RBC,Urine 0-3 per hpf (0-3); Squamous Epithelial Cell,Urine Many per lpf (None-Few); WBC,Urine 0-3 per hpf (0-3)
[2019-05-30] MEDS ORDERED: 0.9 % Sodium Chloride 1,000 ML IV ONE (09:17)
[2019-05-30 09:47] LABS: Basophils % 0.4 %; Hematocrit 32.1 % (35.3-44.9); Hemoglobin 10.5 g/dL (11.5-15.4); Immature Granulocytes % 0.4 % (0-4); Lymphocytes # 0.2 K/mcL (0.6-4.6); Lymphocytes % 9.4 %; Mean Corpuscular HGB Conc 32.7 g/dL (31.6-35.5); Mean Corpuscular Hemoglobin 26.3 pg (28.0-33.3); Mean Corpuscular Volume 80.3 fL (83.0-100.0); Mean Platelet Volume 10.5 fL (9.4-12.4); Monocytes # 0.3 K/mcL (0.0-1.3); Neutrophils # 1.8 K/mcL (1.6-8.9); Platelet Count 121 K/mcL (140-400); Red Cell Distribution Width 15.6 % (11.5-14.5); Segmented Neutrophils % 77.8 %; White Blood Count 2.3 K/mcL (4.3-11.1)
[2019-05-30 10:04] LABS: BUN/Creatinine Ratio 7 (6-26); Blood Urea Nitrogen 4 mg/dL (6-20); Calcium 8.6 mg/dL (8.6-10.3); Carbon Dioxide 24 mEq/L (23-29); Chloride 106 mEq/L (98-107); Glucose 95 mg/dL (70-105); Osmolality,Calculated 281 (280-300); Potassium 3.5 mEq/L (3.5-5.1); Sodium 137 mEq/L (136-145); eGFR For African Americans > 60 (> 60); eGFR For Non-African Americans > 60 (> 60)
[2019-05-30 11:32] LABS: Troponin I < 0.03 ng/mL (< 0.04)
[2019-05-30] MEDS ORDERED: Gadolinium Contrast Agent (WT Based) IV PRN ×2 (13:03→17:26)
[2019-05-30] MEDS ORDERED: *HR* LORazepam 2 MG/ML VIAL IVP ONE (13:54)
[2019-05-30 15:09] LABS: Red Blood Cell,CSF < 0.002 M/mcL
[2019-05-30 15:14] LABS: Appearance,CSF Clear (Clear)
[2019-05-30 15:26] LABS: Glucose,CSF 60 mg/dL (40-70)
[2019-05-30] MEDS ORDERED: Naloxone 0.4 MG/ML INJ IVP PRN (16:03)
[2019-05-30] MEDS ORDERED: hydrOXYzine pamoate 25 MG CAPSULE PO PRN (16:08)
[2019-05-30] MEDS: Ringers Solution, Lactated 1,000 ML IVC SCH ×2 (17:56→22:11)
[2019-05-30] MEDS: Immune Glob, Gamma (Gammagard) 5 GM/50 ML INFUS..BTL IVC SCH (18:16)
[2019-05-30] MEDS: Immune Glob, Gamma (Gammagard) 20 GM/200 ML INFUS..BTL IVC SCH ×2 (19:24→20:43)
[2019-05-30] MEDS: lamoTRIgine 100 MG TABLET PO SCH (21:53)
[2019-05-30 23:31] LABS: Amphetamine Screen,Urine Negative ng/mL (Cutoff=1000); Barbiturate Screen,Urine Negative ng/mL (Cutoff=200); Benzodiazepines Screen,Urine Negative ng/mL (Cutoff=200); Cannabinoid Screen,Urine Negative ng/mL (Cutoff = 50); Cocaine Screen,Urine Negative ng/mL (Cutoff= 300); Opiate Screen,Urine Negative ng/mL (Cutoff=300); Phencyclidine Screen,Urine Negative ng/mL (Cutoff=25)
[2019-05-31] MEDS ORDERED: Acetaminophen 325 MG TABLET PO ONE (04:42)
[2019-05-31] MEDS: lamoTRIgine 100 MG TABLET PO SCH ×2 (08:44→21:37)
[2019-05-31] MEDS: Ondansetron 4 MG/2 ML VIAL IVP PRN ×2 (11:37→19:42)
[2019-05-31] MEDS: Immune Glob, Gamma (Gammagard) 5 GM/50 ML INFUS..BTL IVC SCH (18:49)
[2019-06-01 03:13] LABS: Basophils % 0.5 %; Eosinophils % 0.5 %; Hematocrit 31.4 % (35.3-44.9); Hemoglobin 10.4 g/dL (11.5-15.4); Immature Granulocytes % 0.5 % (0-4); Lymphocytes # 0.8 K/mcL (0.6-4.6); Lymphocytes % 35.5 %; Mean Corpuscular HGB Conc 33.1 g/dL (31.6-35.5); Mean Corpuscular Hemoglobin 26.3 pg (28.0-33.3); Mean Corpuscular Volume 79.3 fL (83.0-100.0); Mean Platelet Volume 10.8 fL (9.4-12.4); Monocytes # 0.2 K/mcL (0.0-1.3); Monocytes % 9.8 %; Neutrophils # 1.1 K/mcL (1.6-8.9); Platelet Count 141 K/mcL (140-400); Red Blood Count 3.96 M/mcL (3.82-4.97); Red Cell Distribution Width 15.2 % (11.5-14.5); Segmented Neutrophils % 53.2 %; White Blood Count 2.1 K/mcL (4.3-11.1)
[2019-06-01 03:28] LABS: BUN/Creatinine Ratio 10 (6-26); Blood Urea Nitrogen 5 mg/dL (6-20); Calcium 8.7 mg/dL (8.6-10.3); Carbon Dioxide 23 mEq/L (23-29); Chloride 108 mEq/L (98-107); Glucose 85 mg/dL (70-105); Osmolality,Calculated 279 (280-300); Potassium 3.5 mEq/L (3.5-5.1); Sodium 136 mEq/L (136-145); eGFR For African Americans > 60 (> 60); eGFR For Non-African Americans > 60 (> 60)
[2019-06-01 09:25] LABS: Total Protein,CSF 24 mg/dL (15-45)
[2019-06-01] MEDS: lamoTRIgine 100 MG TABLET PO SCH ×2 (10:17→21:41)
[2019-06-01] MEDS: Immune Glob, Gamma (Gammagard) 10 GM/100 ML INFUS..BTL IVC SCH ×2 (19:30→22:16)
[2019-06-01] MEDS: Immune Glob, Gamma (Gammagard) 20 GM/200 ML INFUS..BTL IVC SCH (20:02)
[2019-06-01] MEDS: Immune Glob, Gamma (Gammagard) 5 GM/50 ML INFUS..BTL IVC SCH (23:54)
[2019-06-02] MEDS ORDERED: Acetaminophen 325 MG TABLET PO ONE (01:54)
[2019-06-02 03:43] LABS: Basophils % 0.5 %; Eosinophils % 1.4 %; Hematocrit 32.4 % (35.3-44.9); Hemoglobin 10.5 g/dL (11.5-15.4); Immature Granulocytes % 0.5 % (0-4); Lymphocytes # 1.1 K/mcL (0.6-4.6); Lymphocytes % 53.3 %; Mean Corpuscular HGB Conc 32.4 g/dL (31.6-35.5); Mean Corpuscular Hemoglobin 26.4 pg (28.0-33.3); Mean Corpuscular Volume 81.4 fL (83.0-100.0); Mean Platelet Volume 10.8 fL (9.4-12.4); Monocytes # 0.2 K/mcL (0.0-1.3); Monocytes % 11.4 %; Neutrophils # 0.7 K/mcL (1.6-8.9); Platelet Count 168 K/mcL (140-400); Red Blood Count 3.98 M/mcL (3.82-4.97); Segmented Neutrophils % 32.9 %; White Blood Count 2.1 K/mcL (4.3-11.1)
[2019-06-02 03:51] LABS: BUN/Creatinine Ratio 22 (6-26); Blood Urea Nitrogen 12 mg/dL (6-20); Calcium 8.8 mg/dL (8.6-10.3); Carbon Dioxide 27 mEq/L (23-29); Chloride 103 mEq/L (98-107); Glucose 95 mg/dL (70-105); Osmolality,Calculated 286 (280-300); Potassium 3.7 mEq/L (3.5-5.1); Sodium 138 mEq/L (136-145); eGFR For African Americans > 60 (> 60); eGFR For Non-African Americans > 60 (> 60)
[2019-06-02 04:45] LABS: Anisocytosis 1+ (Not Present); Platelet Estimate Normal (Normal)
[2019-06-02] MEDS: lamoTRIgine 100 MG TABLET PO SCH (08:02)
[2019-06-02 15:51] VITALS: BP 108/72
== END 2019-06-02 16:51 | disposition short-term general hospital (02) | DRG 49 ==
LOC: EMEROOARM 08:38 → 3BNU 08:38 → SUATTDRO 18:54 → 2NNU 20:56 → 2ANU 06-01 11:11
PROVIDERS: ADMIT Internal Medicine; ATTEND Family Medicine

== ENCOUNTER 2019-06-29 15:52 | Observation (INO) ==
[2019-06-29] MEDS ORDERED: Naloxone 0.4 MG/ML INJ IVP PRN (23:01)
[2019-06-29] MEDS: Acetaminophen 325 MG TABLET PO PRN (23:40)
[2019-06-29] MEDS: Ondansetron 4 MG/2 ML VIAL IVP PRN (23:53)
[2019-06-29] MEDS: 0.9 % Sodium Chloride 1,000 ML IVC SCH (23:53)
[2019-06-30 00:30] LABS: BUN/Creatinine Ratio 25 (6-26); Blood Urea Nitrogen 14 mg/dL (6-20); Calcium 10.1 mg/dL (8.6-10.3); Carbon Dioxide 25 mEq/L (23-29); Chloride 103 mEq/L (98-107); Glucose 89 mg/dL (70-105); Osmolality,Calculated 282 (280-300); Potassium 3.7 mEq/L (3.5-5.1); Sodium 136 mEq/L (136-145); eGFR For African Americans > 60 (> 60); eGFR For Non-African Americans > 60 (> 60)
[2019-06-30 01:42] LABS: Basophils % 0.5 %; Eosinophils # 0.1 K/mcL (0.0-0.6); Eosinophils % 2.2 %; Hematocrit 34.6 % (35.3-44.9); Hemoglobin 11.1 g/dL (11.5-15.4); Immature Granulocytes % 0.3 % (0-4); Lymphocytes # 1.8 K/mcL (0.6-4.6); Lymphocytes % 30.4 %; Mean Corpuscular HGB Conc 32.1 g/dL (31.6-35.5); Mean Corpuscular Hemoglobin 25.8 pg (28.0-33.3); Mean Corpuscular Volume 80.5 fL (83.0-100.0); Monocytes # 0.4 K/mcL (0.0-1.3); Monocytes % 6.4 %; Neutrophils # 3.5 K/mcL (1.6-8.9); Platelet Count 213 K/mcL (140-400); Red Cell Distribution Width 15.4 % (11.5-14.5); Segmented Neutrophils % 60.2 %; White Blood Count 5.8 K/mcL (4.3-11.1)
[2019-06-30 02:00] LABS: Alanine Aminotransferase 19 Units/L (7-52); Albumin 4.2 g/dL (3.5-5.7); Albumin/Globulin Ratio 1.5 (1.1-2.2); Alkaline Phosphatase 81 Units/L (34-104); Aspartate Amino Transferase 17 Units/L (13-39); BUN/Creatinine Ratio 25 (6-26); Bilirubin,Total 0.3 mg/dL (0.3-1.0); Blood Urea Nitrogen 14 mg/dL (6-20); Calcium 9.7 mg/dL (8.6-10.3); Carbon Dioxide 25 mEq/L (23-29); Chloride 101 mEq/L (98-107); Globulin 2.8 g/dL (2.4-3.5); Glucose 106 mg/dL (70-105); Magnesium 1.9 mg/dL (1.6-2.6); Osmolality,Calculated 287 (280-300); Phosphorous 5.1 mg/dL (2.7-4.5); Potassium 3.8 mEq/L (3.5-5.1); Sodium 138 mEq/L (136-145); eGFR For African Americans > 60 (> 60); eGFR For Non-African Americans > 60 (> 60)
[2019-06-30] MEDS ORDERED: Ibuprofen 600 MG TABLET PO ONE (02:03)
[2019-06-30 02:10] LABS: Thyroid Stimulating Hormone 3.097 mcIU/mL (0.340-5.600)
[2019-06-30 02:24] LABS: Folate > 22.3 ng/mL (3.0-16.0); Vitamin B12 678 pg/mL (250-1100)
[2019-06-30] MEDS: *HR* Enoxaparin 40 MG/0.4 ML SYRINGE SQ SCH (09:11)
[2019-06-30] MEDS: 0.9 % Sodium Chloride 1,000 ML IVC SCH (09:18)
[2019-06-30] MEDS: hydrOXYzine pamoate 25 MG CAPSULE PO PRN (11:18)
[2019-06-30] MEDS: lamoTRIgine 100 MG TABLET PO SCH ×2 (11:19→20:27)
[2019-06-30] MEDS: Ibuprofen 200 MG TABLET PO PRN ×2 (11:20→18:12)
[2019-06-30] MEDS: Ondansetron 4 MG/2 ML VIAL IVP PRN (23:33)
[2019-07-01 00:33] LABS: Basophils % 0.4 %; Eosinophils # 0.1 K/mcL (0.0-0.6); Eosinophils % 3.1 %; Hematocrit 34.2 % (35.3-44.9); Hemoglobin 11.3 g/dL (11.5-15.4); Immature Granulocytes % 0.4 % (0-4); Lymphocytes # 1.6 K/mcL (0.6-4.6); Lymphocytes % 35.4 %; Mean Corpuscular Hemoglobin 26.5 pg (28.0-33.3); Mean Corpuscular Volume 80.1 fL (83.0-100.0); Mean Platelet Volume 9.9 fL (9.4-12.4); Monocytes # 0.3 K/mcL (0.0-1.3); Monocytes % 6.5 %; Neutrophils # 2.4 K/mcL (1.6-8.9); Platelet Count 223 K/mcL (140-400); Red Blood Count 4.27 M/mcL (3.82-4.97); Red Cell Distribution Width 15.4 % (11.5-14.5); Segmented Neutrophils % 54.2 %; White Blood Count 4.5 K/mcL (4.3-11.1)
[2019-07-01 00:52] LABS: Alanine Aminotransferase 19 Units/L (7-52); Alkaline Phosphatase 69 Units/L (34-104); Aspartate Amino Transferase 17 Units/L (13-39); BUN/Creatinine Ratio 24 (6-26); Bilirubin,Total 0.2 mg/dL (0.3-1.0); Blood Urea Nitrogen 12 mg/dL (6-20); Calcium 9.2 mg/dL (8.6-10.3); Carbon Dioxide 24 mEq/L (23-29); Chloride 105 mEq/L (98-107); Glucose 102 mg/dL (70-105); Osmolality,Calculated 280 (280-300); Potassium 3.9 mEq/L (3.5-5.1); Sodium 135 mEq/L (136-145); Total Protein 6.7 g/dL (6.4-8.9); eGFR For African Americans > 60 (> 60); eGFR For Non-African Americans > 60 (> 60)
[2019-07-01 00:53] LABS: Albumin/Globulin Ratio 1.5 (1.1-2.2); Globulin 2.7 g/dL (2.4-3.5)
[2019-07-01] MEDS: Ibuprofen 200 MG TABLET PO PRN (02:11)
[2019-07-01] MEDS: *HR* Enoxaparin 40 MG/0.4 ML SYRINGE SQ SCH (08:50)
[2019-07-01] MEDS: lamoTRIgine 100 MG TABLET PO SCH ×2 (08:50→19:57)
[2019-07-01] MEDS: Acetaminophen 325 MG TABLET PO PRN (13:41)
[2019-07-01] MEDS: Ondansetron 4 MG/2 ML VIAL IVP PRN (23:56)
[2019-07-02] MEDS: hydrOXYzine pamoate 25 MG CAPSULE PO PRN (02:10)
[2019-07-02] MEDS: *HR* Enoxaparin 40 MG/0.4 ML SYRINGE SQ SCH (08:34)
[2019-07-02] MEDS: lamoTRIgine 100 MG TABLET PO SCH ×2 (08:34→21:14)
[2019-07-02] MEDS: Ibuprofen 200 MG TABLET PO PRN (13:31)
[2019-07-02] MEDS: Ondansetron 4 MG/2 ML VIAL IVP PRN (18:08)
[2019-07-03] MEDS: Ondansetron 4 MG/2 ML VIAL IVP PRN (00:54)
[2019-07-03] MEDS: lamoTRIgine 100 MG TABLET PO SCH ×2 (07:57→21:07)
[2019-07-03] MEDS: *HR* Enoxaparin 40 MG/0.4 ML SYRINGE SQ SCH (10:17)
[2019-07-03] MEDS: Ibuprofen 200 MG TABLET PO PRN ×2 (10:19→21:08)
[2019-07-03] MEDS ORDERED: Mag Hydrox/Al Hydrox/Simeth 30 ML UDC PO PRN (14:57)
[2019-07-03] MEDS: Sennosides/Docusate Sodium TABLET PO PRN (21:07)
[2019-07-04] MEDS: Ondansetron 4 MG/2 ML VIAL IVP PRN ×2 (00:03→08:24)
[2019-07-04] MEDS: Acetaminophen 325 MG TABLET PO PRN (00:09)
[2019-07-04] MEDS: *HR* Enoxaparin 40 MG/0.4 ML SYRINGE SQ SCH (08:19)
[2019-07-04] MEDS: hydrOXYzine pamoate 25 MG CAPSULE PO PRN (08:19)
[2019-07-04] MEDS: lamoTRIgine 100 MG TABLET PO SCH ×2 (08:19→19:57)
[2019-07-04] MEDS: Sennosides/Docusate Sodium TABLET PO PRN (19:57)
[2019-07-05] MEDS: Acetaminophen 325 MG TABLET PO PRN ×3 (02:19→20:14)
[2019-07-05] MEDS: *HR* Enoxaparin 40 MG/0.4 ML SYRINGE SQ SCH (09:22)
[2019-07-05] MEDS: lamoTRIgine 100 MG TABLET PO SCH ×2 (09:22→20:14)
[2019-07-05] MEDS: Sennosides/Docusate Sodium TABLET PO PRN (20:14)
[2019-07-05] MEDS: hydrOXYzine pamoate 25 MG CAPSULE PO PRN (22:09)
[2019-07-06] MEDS: Acetaminophen 325 MG TABLET PO PRN ×2 (07:49→16:18)
[2019-07-06] MEDS: *HR* Enoxaparin 40 MG/0.4 ML SYRINGE SQ SCH (07:50)
[2019-07-06] MEDS: lamoTRIgine 100 MG TABLET PO SCH (07:50)
[2019-07-06 11:59] VITALS: BP 95/51
== END 2019-07-06 17:58 ==
LOC: EMEROOARM 15:52 → 3NENU 15:52 → SUATTDRO 21:15 → 3NENU 22:00 → 3BNU 07-03 11:34
PROVIDERS: ADMIT Internal Medicine; ATTEND Internal Medicine

== ENCOUNTER → 2020-11-08 15:15 | Observation (INO) ==
[2020-11-08 07:29] LABS: Amorphous Sediment,Urine Few per hpf (None-Few); Bacteria,Urine Few per hpf (None-Few); Bilirubin,Urine Negative (Negative); Blood,Urine Negative (Negative); Clarity,Urine Turbid (Clear); Color,Urine Light-Yellow (Yellow); Glucose,Urine (UA) Normal (Normal); Ketones,Urine Negative (Negative); Leukocyte Esterase,Urine Moderate (Negative); Mucus,Urine Few per lpf (None-Few); Nitrite,Urine Negative (Negative); Protein,Urine Negative (Neg-Trace); RBC,Urine 0-3 per hpf (0-3); Specific Gravity,Urine 1.015 (1.010-1.025); Squamous Epithelial Cell,Urine Few per hpf (None-Few); Urobilinogen,Urine Normal (Normal)
[2020-11-08 12:39] LABS: Amphetamine Screen,Urine Negative ng/mL (Cutoff=1000); Barbiturate Screen,Urine Negative ng/mL (Cutoff=200); Benzodiazepines Screen,Urine Negative ng/mL (Cutoff=200); Cannabinoid Screen,Urine Negative ng/mL (Cutoff = 50); Cocaine Screen,Urine Negative ng/mL (Cutoff= 300); Opiate Screen,Urine Negative ng/mL (Cutoff=300); Phencyclidine Screen,Urine Negative ng/mL (Cutoff=25)
[2020-11-08 13:27] LABS: Hepatitis B Surface Antigen Nonreactive (Nonreactive)
[2020-11-08 13:56] LABS: HIV-1&2 Antibody & p24 Ag Nonreactive (Nonreactive)
[2020-11-08 15:30] LABS: Rubella IgG Antibody POSITIVE (POSITIVE); Varicella Zoster IgG Antibody Negative
== END | disposition home or self-care (01) ==
LOC: 1NENULAB
PROVIDERS: ADMIT Advanced Practice Midwife; ATTEND Advanced Practice Midwife

== ENCOUNTER → 2020-11-13 18:37 | Observation (INO) ==
[2020-11-13 14:56] LABS: Bacteria,Urine Moderate per hpf (None-Few); Bilirubin,Urine Negative (Negative); Blood,Urine Negative (Negative); Clarity,Urine Turbid (Clear); Color,Urine Yellow (Yellow); Glucose,Urine (UA) Normal (Normal); Ketones,Urine Negative (Negative); Leukocyte Esterase,Urine Large (Negative); Mucus,Urine Moderate per lpf (None-Few); Nitrite,Urine Negative (Negative); Protein,Urine 50 mg/dL (Neg-Trace); Squamous Epithelial Cell,Urine Many per hpf (None-Few); Urobilinogen,Urine Normal (Normal); WBC,Urine 30-50 per hpf (0-3)
[2020-11-13 17:25] LABS: Candida DNA DETECTED (Not Detect); Gardnerella DNA Not Detected (Not Detect); Trichomonas DNA Not Detected (Not Detect)
[~2020-11-13 18:37] MED LIST changes: -*HR* Nalbuphine 10 MG/ML AMPUL IVP PRN; +Acetaminophen 325 MG TABLET PO ONE; -Famotidine 20 MG/2 ML VIAL IVP PRN; -Lidocaine 1% 20 ML MDV INFILT PRN; -Metoclopramide 10 MG/2 ML VIAL IVP PRN; -Naloxone 0.4 MG/ML INJ IVP PRN; +Nitrofurantoin (BID) 100 MG CAPSULE PO SCH; -Ondansetron 4 MG/2 ML VIAL IVP PRN; +Ondansetron ODT 4 MG TAB.RAPDIS SL ONE; -Oxytocin 20 units/ LR 1000 mL 20 UNIT/1,000 ML BAG IVC SCH; -Ringers Solution, Lactated 1,000 ML IVC SCH
== END | disposition home or self-care (01) ==
LOC: 1NENULAB
PROVIDERS: ADMIT Advanced Practice Midwife; ATTEND Advanced Practice Midwife

== ENCOUNTER 2020-11-17 01:28 | Observation (INO) ==
[2020-11-17 03:05] LABS: Basophils % 0.2 %; Eosinophils # 0.1 K/mcL (0.0-0.6); Eosinophils % 0.7 %; Hematocrit 26.1 % (35.3-44.9); Hemoglobin 7.6 g/dL (11.5-15.4); Immature Granulocytes % 0.9 % (0-4); Lymphocytes # 1.5 K/mcL (0.6-4.6); Lymphocytes % 18.5 %; Mean Corpuscular HGB Conc 29.1 g/dL (31.6-35.5); Mean Corpuscular Volume 75.4 fL (83.0-100.0); Mean Platelet Volume 11.1 fL (9.4-12.4); Monocytes # 0.5 K/mcL (0.0-1.3); Monocytes % 6.3 %; Platelet Count 163 K/mcL (140-400); Red Blood Count 3.46 M/mcL (3.82-4.97); Red Cell Distribution Width 19.1 % (11.5-14.5); Segmented Neutrophils % 73.4 %; White Blood Count 8.2 K/mcL (4.3-11.1)
[2020-11-17] MEDS: Ringers Solution, Lactated 1,000 ML IVC SCH ×2 (03:10→18:03)
[2020-11-17 03:11] LABS: Bilirubin,Urine Negative (Negative); Blood,Urine Moderate (Negative); Clarity,Urine Clear (Clear); Color,Urine Light-Yellow (Yellow); Glucose,Urine (UA) Normal (Normal); Ketones,Urine Negative (Negative); Leukocyte Esterase,Urine Trace (Negative); Mucus,Urine Few per lpf (None-Few); Nitrite,Urine Negative (Negative); Protein,Urine Trace mg/dL (Neg-Trace); RBC,Urine 30-50 per hpf (0-3); Specific Gravity,Urine 1.025 (1.010-1.025); Squamous Epithelial Cell,Urine Few per hpf (None-Few); Urobilinogen,Urine Normal (Normal); WBC,Urine 15-30 per hpf (0-3)
[2020-11-17] MEDS: Betamethasone Acet/SodPhos 30 MG/5 ML VIAL IM SCH (03:11)
[2020-11-17] MEDS: Acetaminophen 325 MG TABLET PO PRN ×3 (05:46→18:01)
[2020-11-17] MEDS ORDERED: Ferumoxytol 510 MG in 0.9 % Sodium Chloride 100 ML IVPB ONE (07:41)
[2020-11-17] MEDS ORDERED: Rho Immune Globulin 1,500 UNIT SYRINGE IM ONE (08:24)
[2020-11-17] MEDS: Nitrofurantoin (BID) 100 MG CAPSULE PO SCH ×2 (09:15→18:01)
[2020-11-17] MEDS ORDERED: hydrOXYzine pamoate 25 MG CAPSULE PO PRN (22:24)
[2020-11-18] MEDS: Ringers Solution, Lactated 1,000 ML IVC SCH ×2 (00:58→11:18)
[2020-11-18] MEDS: Betamethasone Acet/SodPhos 30 MG/5 ML VIAL IM SCH (00:58)
[2020-11-18] MEDS: Acetaminophen 325 MG TABLET PO PRN ×2 (00:59→06:31)
[2020-11-18] MEDS: Nitrofurantoin (BID) 100 MG CAPSULE PO SCH (06:31)
[2020-11-18 07:56] VITALS: BP 113/67
[2020-11-18 10:53] LABS: Hematocrit 24.4 % (35.3-44.9); Hemoglobin 7.2 g/dL (11.5-15.4); Mean Corpuscular HGB Conc 29.5 g/dL (31.6-35.5); Mean Corpuscular Hemoglobin 22.4 pg (28.0-33.3); Mean Platelet Volume 10.6 fL (9.4-12.4); Platelet Count 152 K/mcL (140-400); Red Blood Count 3.21 M/mcL (3.82-4.97); Red Cell Distribution Width 19.4 % (11.5-14.5); White Blood Count 9.9 K/mcL (4.3-11.1)
== END 2020-11-18 14:24 | disposition home or self-care (01) ==
LOC: 1NENULAB → 1NENUOBS 09:06
PROVIDERS: ADMIT Advanced Practice Midwife; ATTEND Advanced Practice Midwife

== ENCOUNTER → 2020-11-20 06:20 | Observation (INO) ==
[~2020-11-20 06:20] MED LIST changes: -Acetaminophen 325 MG TABLET PO ONE; +Ferumoxytol 510 MG in 0.9 % Sodium Chloride 100 ML IVPB ONE; -Nitrofurantoin (BID) 100 MG CAPSULE PO SCH; +Ondansetron 4 MG/2 ML VIAL IVP ONE; -Ondansetron ODT 4 MG TAB.RAPDIS SL ONE; +Ringers Solution, Lactated 1,000 ML IVC SCH
== END | disposition home or self-care (01) ==
LOC: 1NENULAB
PROVIDERS: ADMIT Registered Nurse; ATTEND Registered Nurse

== ENCOUNTER 2020-11-22 14:00 | Observation (INO) ==
[2020-11-22] MEDS ORDERED: Ringers Solution, Lactated 1,000 ML IVC ONE (14:23)
== END 2020-11-22 16:00 | disposition home or self-care (01) ==
LOC: 1NENULAB
PROVIDERS: ADMIT Advanced Practice Midwife; ATTEND Advanced Practice Midwife

== ENCOUNTER → 2020-11-25 23:00 | Observation (INO) ==
[2020-11-25 23:01] LABS: Candida DNA Not Detected (Not Detect); Gardnerella DNA Not Detected (Not Detect); Trichomonas DNA Not Detected (Not Detect)
== END | disposition home or self-care (01) ==
LOC: 1NENULAB
PROVIDERS: ADMIT Advanced Practice Midwife; ATTEND Advanced Practice Midwife

== ENCOUNTER → 2020-11-27 00:15 | Observation (INO) ==
[~2020-11-27 00:15] MED LIST changes: -Ferumoxytol 510 MG in 0.9 % Sodium Chloride 100 ML IVPB ONE; -Ondansetron 4 MG/2 ML VIAL IVP ONE; +Ringers Solution, Lactated 1,000 ML ONE
== END | disposition short-term general hospital (02) ==
LOC: 1NENULAB
PROVIDERS: ADMIT Advanced Practice Midwife; ATTEND Advanced Practice Midwife